=== PATIENT | female | born 1965 | race Caucasian/White ===

== ENCOUNTER 2020-09-09 12:31 | Emergency (ER) | payer MEDICAID, SELFPAY ==
[2020-09-09 12:36] VITALS: BP 156/77; PULSE 79; RESP 16; TEMP 36.7; O2SAT 99
--- NOTE | 2020-09-09 13:04 | ED.GENADUL_ITS ---
Discharge Plan Disposition Patient Disposition: HOME Condition: Stable Discharge Details Clinical Impression: Nausea Primary Care Provider: Unknown,Unknown ED Provider: Navid Kerr Home Meds and New Rx's Prescriptions: New ondansetron HCl [Zofran] 4 mg tablet 4 mg PO Q8H PRNQty: 10 RF: 0 Discharge Instructions Instructions: Acute Nausea and Vomiting (ED) Additional Instructions: Zofran as directed. [id number] Tylenol and/or Motrin as directed for discomfort. Covid test is pending, please quarantine until the test has come back negative. Watch for new or worsening symptoms and return to the ER for any concerns. I do recommend reaching out your primary care provider to discuss outpatient reevaluation. Stand Alone Forms: PENDING COVID-19 TESTING Discharge Data Discharge Date/Time-TO BE ENTERED AT DEPARTURE: 09/09/20 14:10 Medical Decision Making This is a 54-year-old female who is presenting with general malaise, 2/10 headache, mild nausea that began last , worsened after getting the [employer] Covid vaccine that subsequent Wednesday. Reports T-max of 100.0 the same day. She took Tylenol today and her headache has resolved completely. Reports mild nausea but no vomiting. That she is concerned that her son has Covid, he is currently in the ER being evaluated, and because she was simply sitting in the car she thought she was coming to the ER to get tested for Covid. She has no additional questions or concerns. Clinically she appears well, nontoxic, no distress, neurologically intact. Pulse 79, respirations 16, afebrile, O2 sat 99% on room air. Lungs are clear to auscultation. I see no indication for blood draw or chest x-ray. Will obtain Covid swab. Patient requesting Tylenol to be sure that her headache is not come back. 1 g p.o. Tylenol given. Patient remained neurologically intact. She has no additional questions or concerns and is comfortable discharge. Medical Records Medical records reviewed: Yes I reviewed the patient's medical records. HPI General Mode of arrival: ambulatory . Date/Time Provider Initiated Documentation: 09/09/20 12:40 . Limitations to Documentation: no limitations . Information obtained by: patient . HPI Narrative: This is a 54-year-old female, denies significant past medical history presents to the ER for evaluation. She states that her son was being evaluated in the ER and she was just waiting in the car so she figured she should come in to get tested for Covid. She states that on or Wednesday of last week she had general malaise, 2 out of 10 mild global headache. Subsequently on 09-07 she had the [employer] Anish Covid vaccine. She states that her symptoms worsened after taking the vaccine. She took Aleve this morning and reports that her headache has resolved completely. Mild nausea but no vomiting. She states that after she had the vaccine she had a temperature of 100.0. She denies fever now. She denies any current headache, visual change, neck pain, chest pain, shortness of breath, cough, abdominal pain, vomiting, change in bowel or bladder function, numbness, tingling, focal weakness. Does report general malaise. She is concerned that her son could have Covid so she would like to be tested. Related Data Home Medications Medication Instructions Recorded Confirmed ondansetron HCl [Zofran] 4 mg PO Q8H PRN #10 tab 09/09/20 Previous Rx's Medication Instructions Recorded ondansetron HCl [Zofran] 4 mg PO Q8H PRN #10 tab 09/09/20 Allergies Allergy/AdvReac Type Severity Reaction Status Date / Time No Known Allergies Allergy Unverified 09/09/20 12:38 General Stated Complaint: Headache MARCELLA: 4 Review of Systems Constitutional Constitutional: Reports fatigue, Reports fever(s) and Reports headache(s) Eyes Eyes: Denies change in vision ENT Ears, Nose, Mouth, and Throat: Reports headache(s) and Denies neck pain Cardiovascular Cardiovascular: Denies chest pain and Denies dyspnea Respiratory Respiratory: Denies cough and Denies dyspnea Gastrointestinal Gastrointestinal: Denies abdominal pain, Reports nausea and Denies vomiting Genitourinary Genitourinary: Denies dysuria Musculoskeletal Musculoskeletal: Denies neck pain, Denies numbness and Denies tingling Integumentary/Breasts Skin/Breast: Denies rash Neurologic Neurologic: Reports headache(s), Denies numbness, Denies tingling and Reports weakness (Generalized) Endocrine Endocrine: Reports fatigue [facility] Social History Smoking/Tobacco Use Status: Never Smoking risk assessment performed?: Yes Alcohol Intake: never Drug use: Never Do you feel safe at home: Yes Do you feel safe in your relationship?: Yes Exam Const General: cooperative, healthy appearing, comfortable and no acute distress Orientation: alert, awake and oriented x3 HENMT Head: normal to inspection, normocephalic and atraumatic Ears: external ears normal, TM's normal bilaterally and EAC's normal Face and sinus: normal facial exam Mouth: moist mucous membranes Throat: posterior oropharynx normal Eyes General: appearance normal, both eyes and all related structures Conjunctivae: conjunctivae normal Neck Neck: normal visual inspection, full ROM, no lymphadenopathy, no meningeal signs, trachea midline, supple and nontender Resp Effort & Inspection: normal respiratory effort and able to speak in complete sentences Auscultation: clear to auscultation bilaterally Cardio Rate: regular rate Rhythm: regular rhythm GI Palpation: soft and nontender Back/Spine/Pelvis Back: No back tenderness Skin General skin exam: no rashes or lesions noted Neuro General: patient alert, patient awake, patient oriented x3, moves all extremities and no focal motor deficits Cognition: normal cognition Speech: speech normal Gait: normal gait Motor: muscle tone normal throughout Sensory Exam: no sensory deficits noted Extrem General: normal to inspection, full ROM and capillary refill normal Psych Appearance: grossly normal Mental Status: mental status grossly normal Course Vital Signs Vital signs: Vital Signs Temperature 36.7 C 09/09/20 12:36 Pulse 79 09/09/20 12:36 Respiratory Rate 16 09/09/20 12:36 Blood Pressure 156/77 H 09/09/20 12:36 Pulse Oximetry 99 09/09/20 12:36 Temperature 36.7 C 09/09/20 12:36 Temperature Source Skin 09/09/20 12:36 Pulse 79 09/09/20 12:36 Respiratory Rate 16 09/09/20 12:36 Blood Pressure 156/77 H 09/09/20 12:36 Blood Pressure Position Sitting 09/09/20 12:36 Pulse Oximetry 99 09/09/20 12:36 Oxygen Delivery Method Room Air 09/09/20 12:36 Oxygen Flow Rate 0 09/09/20 12:36 Pain Level 0 09/09/20 12:36
[2020-09-09] MEDS: Ondansetron O.D.T. 4 MG TABEF PO (13:11)
[2020-09-09] MEDS: Acetaminophen 500 MG TAB 1000 MG PO (13:57)
[2020-09-09 13:59] VITALS: BP 131/71; PULSE 73; RESP 15; TEMP 36.6; O2SAT 98
[2020-09-09 14:07] VITALS: BP 131/71; PULSE 73; RESP 15; TEMP 36.6; O2SAT 98
[2020-09-10 12:35] LABS: COVID-19 RT-PCR UVMMC Result Positive (Negative)
== END 2020-09-09 14:10 | disposition home or self-care (01) ==
PROVIDERS: Emergency Provider Physician Assistant
DX: U07.1 COVID-19 (principal); R11.0 Nausea
CPT/HCPCS: 99283; U0003

== ENCOUNTER → 2023-11-30 02:06 | Outpatient (CLI) | payer MEDICAID, SELFPAY ==
--- NOTE | 2023-11-30 | DI.US_ITS ---
Exam(s) US CAROTID EXAM: US CAROTID CLINICAL HISTORY: VERTIGO,H81.4,TINNITUS,H93.19. TECHNIQUE: Ultrasound carotids performed using grayscale, color-flow, and spectral Doppler imaging. COMPARISON: No exams were available for comparison FINDINGS: CAROTID ARTERIES: There is minimal plaque evident In the common carotid arteries, carotid bulbs and internal carotid arteries in the neck. There are n o elevated systolic velocities. Mildly elevated diastolic velocities are noted in the distal interna l carotid arteries in the upper neck bilaterally questionable significance. Visually these vessels a ppear patent. VERTEBRAL ARTERIES: Antegrade flow demonstrated in both vertebral arteries. Incidental finding: There is a 1.2 cm solid hypoechoic nodule in the inferior aspect of the left thyr oid lobe. Exhibits peripheral calcification. Measurements: R Bulb: 77.6cm/s PS / 28.4cm/s ED R CCA: 80.2cm/s PS / 28.4cm/s ED R ECA: 93.2cm/s PS / 19.3cm/s ED R ICA Prox: 78.2cm/s PS / 32.5cm/s ED R ICA Mid: 97.8cm/s PS / 43.3cm/s ED R ICA Distal: 100cm/s PS /47.7cm/s ED R Vert: 53.4cm/s PS / 22.8cm/s ED R SVR: 1.2 R DVR: 1.7 L Bulb: 81.5cm/s PS / 25.8cm/s ED L CCA: 91.9cm/s PS / 34.9cm/s ED L ECA: 78.9cm/s PS / 16.7cm/s ED L ICA Prox: 72.4cm/s PS / 32.3cm/s ED L ICA Mid: 96.6cm/s PS / 46.1cm/s ED L ICA Distal: 87.6cm/s PS / 42.2cm/s ED L Vert: 51.3cm/s PS / 18.9cm/s ED L SVR: 1.1 L DVR: 1.3 IMPRESSION: No evidence for hemodynamically significant carotid stenosis. Antegrade flow demonstrated in both vertebral arteries Left thyroid nodule noted. This can be further studied with dedicated thyroid ultrasound Criteria for Carotid Stenosis: Normal: ICA PSV <125 cm/s no plaque or intimal thickening is visible. <50% stenosis: ICA PSV <125 cm/s and plaque or intimal thickening is visible. 50-69% stenosis: ICA PSV is 125-250 cm/s and plaque is visible. >70% stenosis to near occlusion: ICA PSV >250 cm/s with visible plaque and luminal narrowing. DATA REPOSITORY:
--- OUTSIDE RECORDS SUMMARY | 2023-11-30 02:10 | XMS_ITS | Continuity of Care Document ---
Author Name Unknown Organization [facility] Address [address] [place] [id number] Care Team Providers Care Services Host Name Role Phone Mikala Ellis APRN Primary Care Physician Encounter LTTL_[place] FIN NBR [id number] Date(s): 10/12/23 - 10/12/[address] [address] Encounter Diagnosis Other fatigue(Final) - Vitamin D deficiency, unspecified(Final) - Discharge Disposition: Home or Self Care Attending Physician: Mikala Ellis APRN Admitting Physician: Mikala Ellis APRN Referring Physician: Mikala Ellis APRN Results Laboratory List Name Date CBC w/o Diff (CBC, without Differential (CPT-08939)) 10/12/23 Comprehensive Metabolic Pane l (Comprehensive Metabolic Profile, Non-Fasting (CMP) (CPT-76456)) 10/12/23 Lipid Panel (Lipid Profile (CPT-08147)) 10/12/23 Thyroid Stimulating Hormone (Thyroid Sti mulating Hormone (TSH) (CPT-82142)) 10/12/23 Vitamin D 25 Hydroxy Level (Vitamin D, 2 5-Hydroxy (CPT-74837)) 10/12/23 Most recent to oldest [Reference Range]: 1 WBC [4.8-10.8 K/mcL] 5.4 K/mcL (10/12/23 3:31 PM) RBC [4.20-5.40 Million/mcL] 4.58 Million /mcL (10/12/23 3:31 PM) BUN [7-25 mg/dL] 18 mg/dL (10/12/23 3:31 PM) Cholesterol Total [<=200 mg/dL] 211 mg/d L *HI* (10/12/23 3:31 PM) LDL 132.0 mg/dL 1 *NA* (10/12/23 3: PM) Glucose Level [70-109 mg/dL] 79 mg/dL (10/12/23 3: PM) Potassium Level [3.5-5.1 mmol/L] 4.1 mmo l/L (10/12/23 3: PM) MCV [81.0-99.0 fL] 88.1 fL (10/12/23: PM) HDL [23-92 mg/dL] 65 mg/dL (10/12/23 3:31 PM) AST [13-39 IntlUnit/L] 16 IntlUnit/L (10/12/23: PM) ALT [7-52 IntlUnit/L] 16 IntlUnit/L (10/12/23: PM) MCHC [32.0-37.0 g/dL] 33.5 g/dL (10/12/23: PM) Osmolality [275-295 mOsm/kg] 280 mOsm/kg (10/12/23: PM) Sodium Level [136-145 mmol/L] 140 mmol/L (10/12/23:31 PM) Chol/HDL 3.2 2 *NA* (10/12/23 PM) Hct [37.0-47.0 %] 40.3 % (10/12/23: PM) Vitamin D 25 OH [30.0-100.0 ng/mL] 30.0 ng/mL 3 (10/12/23 PM) Triglycerides [<=150 mg/dL] 70 mg/dL (10/12/2331 PM) Calcium Level [8.6-10.3 mg/dL] 9.6 mg/dL (10/12/23:31 PM) Albumin Level [3.5-5.7 g/dL] 4.4 g/dL (10/12/23: PM) Protein Total [6.4-8.9 g/dL] 7.3 g/dL (10/12/23 3:31 PM) MCH [27.0-31.0 pg] 29.5 pg (10/12/23: PM) Bilirubin Total [0.3-1.0 mg/dL] 0.5 mg/d L (10/12/23 3:31 PM) Hgb [12.0-16.0 g/dL] 13.5 g/dL (10/12/23 3:31 PM) Alk Phos [34-104 IntlUnit/L] 80 IntlUnit /L (10/12/23 3:31 PM) MPV [7.4-10.4 fL] 9.0 fL (10/12/23 3:31 PM) Platelets [130-400 K/mcL] 240 K/mcL (10/12/23 3:31 PM) CO2 [21-31 mmol/L] 27 mmol/L (10/12/23 3:31 PM) TSH [0.45-5.33 mcIntlUnit/mL] 1.66 mcInt lUnit/mL (10/12/23 3:31 PM) Chloride Level [98-107 mmol/L] 102 mmol/ L (10/12/23 3:31 PM) RDW-CV [11.5-14.5 %] 13.4 % (10/12/23 3:31 PM) A/G Ratio [1.0-2.5 g/dL] 1.5 g/dL (10/12/23 3:31 PM) BUN/Creat Ratio [8.0-20.0] 20.0 (10/12/23 3:31 PM) Globulin [2.3-3.5 g/dL] 2.9 g/dL (10/12/23 3:31 PM) Creatinine Level [0.60-1.20 mg/dL] 0.90 mg/dL (10/12/23 3:31 PM) Anion Gap [3.0-12.0] 11.0 (10/12/23 3:31 PM) eGFR CKD-EPI [>=60 mL/min/1.73 m2] 75 mL /min/1.73 m2 (10/12/23 3:31 PM) 1Interpretive Data: Optimal: Less than 100 mg/dL Above Optimal: 100 - 129 mg/dL Borderline High: 130 - 159 mg/dL High: 160 - 189 mg/dL Very High: > or = 190 mg/dL 2Interpretive Data: RISK MALE FEMALE 1/2 average 3.4 3.3 Average 5.0 4.4 2x Average 9.6 7.1 3x Average 23.4 11.0 3Interpretive Data: VIT D STATUS: RANGE: Deficient <20 ng/mL Insufficiency 20-30 ng/mL Sufficiency 30-100 ng/mL Toxicity >100 ng/mL Patients that have undergone flourescein dye angiography without allowing enough time for clearanceof the flourescein dye may have falsely elevated Vitamin D levels. Patient Care team information Care Team Personnel Name: Mikala Ellis APRN Position: Physician Member Role: Primary Care Physician Address: Address: [place] [address]- Care Team Related Persons Name: SURYA GAMEZ
--- OUTSIDE RECORDS SUMMARY | 2023-11-30 02:10 | XMS_ITS | Patient Health Record ---
Author Name Unknown [facility] Address [address] [place] [address] Care Team Providers Care Well Blower Name Role Phone ELIS BURTON Primary Care Provider Un available Reta Perez Unavailable [phone] REASON FOR REFERRAL No Information SOCIAL HISTORY Tobacco Use: Social History Observation Description Date Details (start date - stop date) Never Smoker NA - NA Sex Assigned At : Social History Observation Description Sex Assigned At Unknown SMOKING Question Answer Notes Are you a: nonsmoker PROBLEMS Problem Type ICD Code Onset Dates Problem Status W/U Status Risk SNOMED Code Notes Problem Sural neuritis (G57.80) Active confirmed PLAN OF TREATMENT No Information Insurance Providers Payer Name Payer Address Payer Phone Subscriber Number Group Number Insured Name Patient Relationship to Insured Coverage Start Date Coverage End Date [place]ICAID [place] [employer] [place], [place] [id number] ITZEL GAMEZ Self - patient is the insured [place] [address] ITZEL GAMEZ Self - patient is the insured MEDICAL (GENERAL) HISTORY Medical History History ICD Code [place] veins Vit D deficiency Obesity Surgical History Surgery Date(Month/Year) Tonsillectomy BTL
--- OUTSIDE RECORDS SUMMARY | 2023-11-30 02:10 | XMS_ITS | Continuity of Care Document ---
Author Name Unknown Organization [facility] Address [address] [place] [address] Care Team Providers Care Front Man Name Role Phone Mikala Ellis APRN Primary Care Physician Encounter LTTL_[place] FIN NBR [id number] Date(s): 12/22/22 - 12/22/22 [facility] [address] [place], [place] [address] Encounter Diagnosis Pleurodynia(Final) - Discharge Disposition: Home or Self Care Attending Physician: Rachel Hicks APRN Admitting Physician: Rachel Hicks APRN Referring Physician: Rachel Hicks APRN Results Radiology Reports * Exam Date Time Procedure Performing Provider Status 12/22/22 4:45 PM XR Ribs w/ PA Chest Bilateral DomainUs er, Generated; Auth (Verified) Notes: (XR Ribs w/ PA Chest Bilateral) Reason For Exam: R07.81-Pleurodynia;R07.81-Pleurodynia XR Ribs w/ PA Chest Bilateral EXAM DESCRIPTION: XR Ribs w/ PA Chest Bilateral, 7 views 12/22/2022 INDICATION: R07.81-PLEURODYNIA COMPARISON: None FINDINGS: No acute rib fracture identified on either side Clear lungs with no focal infiltrate or pulmonary edema. Normal cardiomediastinal contour. No significant pleural effusion or pneumothorax. Spondylotic changes of the dorsal spine. IMPRESSION: No acute rib fracture identified on either side No active chest disease. JOB #: [id number] Final Signed by: Jose Maria Barcenas MD Signed (Electronic Signature): 12/22/2022 4:49 pm Patient Care team information Care Team Personnel Name: Mikala Ellis APRN Position: Physician Member Role: Primary Care Physician Address: Address: [address] [address]- Care Team Related Persons Name: SURYA GAMEZ
[2023-11-30] MEDS: Omnipaque 350 MG/ML 100 ML BTL IJ (13:27)
[2023-11-30] MEDS: Normal Saline - Diluent 50 ML VIAL IJ (13:29)
--- NOTE | 2023-11-30 14:14 | DI.CT_ITS ---
Exam(s) CT BRAIN NECK CTA EXAM: CT BRAIN NECK CTA CLINICAL HISTORY: VERTIGO,TINNITUS., ? VASCULAR ISSUE. TECHNIQUE: Imaging Protocol: Axial CT angiography was performed with multi-slice acquisition and mu lti-planar and/or 3D reconstructions. CONTRAST MATERIAL: Intravenous: Omnipaque 350 contrast volume:85 mL COMPARISON: No exams were available for comparison FINDINGS: CT Head W/O and W: Ventricles and Extra axial spaces: Normal in size and morphology for the patient's age. Hemorrhage: None. Cerebral parenchyma: Normal. No acute territorial infarct is seen. No mass effect is present. Midline shift: None. Brainstem/Cerebellum: Normal. Calvarium: Normal. Visualized Paranasal sinuses/Mastoids: Clear. Soft Tissues: Unremarkable. Enhancement: Unremarkable. CTA Neck W: Common Carotid: Right: No dissection, occlusion or significant stenosis. Left: No dissection, occlusion or significant stenosis. External Carotid: Right: No occlusion or significant stenosis. Left: No occlusion or significant stenosis. Internal Carotid: Right: No dissection, occlusion or significant stenosis. Left: No dissection, occlusion or significant stenosis. Vertebral Artery: Right: No dissection, occlusion or significant stenosis. Left: No dissection, occlusion or significant stenosis. Lung Apices: Normal. Bones: Within normal limits for the patient's age. Soft Tissues: Normal. Thyroid gland: Unremarkable. CTA Brain W: Internal Carotid Arteries: There is no aneurysm, occlusion or significant stenosis. Anterior Cerebral Arteries: Right: No aneurysm, occlusion or significant stenosis. Left: No aneurysm, occlusion or significant stenosis. Middle Cerebral Arteries: Right: No aneurysm, occlusion or significant stenosis. Left: No aneurysm, occlusion or significant stenosis. Posterior Cerebral Arteries: Right: No aneurysm, occlusion or significant stenosis. Left: No aneurysm, occlusion or significant stenosis. Vertebral Arteries: Right: No aneurysm, occlusion or significant stenosis. Left: No aneurysm, occlusion or significant stenosis. Basilar Artery: No aneurysm, occlusion or significant stenosis. IMPRESSION: 1. No large vessel occlusion or significant stenosis on the CT angiography of the head. 2. No acute intracranial process. 3. No occlusion or significant stenosis on the CT angiography of the neck. RADIATION DOSE DELIVERED: 2,130.64mGy.cm Total DLP DATA REPOSITORY: All CT scans at this facility are submitted to the National Radiology Data Registry (NRDR) Dose Index Registry (DIR) with the [employer] (ACR). RADIATION OPTIMIZATION: All CT scans at this facility use at least one of these dose optimization te chniques: automated exposure control; mA and/or kV adjustment per patient size (includes targeted exa ms where dose is matched to clinical indication); or iterative reconstruction.
== END ==
PROVIDERS: Visit Provider Nurse Practitioner Family
DX: H81.4 Vertigo of central origin (principal)
CPT/HCPCS: 70496; 70498; 93880; J3490

== ENCOUNTER → 2023-12-01 01:37 | Outpatient (CLI) | payer MEDICAID, SELFPAY ==
--- NOTE | 2023-12-01 | DI.US_ITS ---
Exam(s) US THYROID EXAM: US THYROID CLINICAL HISTORY: THYROID NODULE 1.2 CM SOLID HYPOECHOIC NODULE LT, ? CANCER. TECHNIQUE: Ultrasound thyroid performed using standard protocol. COMPARISON: No exams were available for comparison FINDINGS: Both thyroid lobes as well as the isthmus exhibit normal size and echotexture. There is, however, a single solid nodule which is in the inferior aspect of the left lobe. There are no nodules in the ri ght lobe nor in the isthmus. This left lobe nodule measures 1.0 x 0.7 x 0.7 cm TiRads grading for this nodule is as follows: Composition: Solid-2 points Echogenicity: Hypoechoic-2 points Shape: Wider than taller-0 points Margin: Smooth-0 points Echogenic Foci: Peripheral calcification evident-2 points Total points for this nodule: 6 ACR Ti-Rads Category: 4 This TR 4 level nodule can be followed as it measures less than 1.5 cm size. TR 4 level nodules greater than 1.5 cm size require ultrasound FNA. Maximum measurement of this nodu le is 1 cm. LYMPH NODES: There is no significant adenopathy. IMPRESSION: There is a single solid 10 x 7 x 7 mm nodule in the inferior aspect of the left thyroid lobe which is a TR 4 level nodule. Recommend repeat ultrasound in 1 year No significant adenopathy evident DATA REPOSITORY:
--- OUTSIDE RECORDS SUMMARY | 2023-12-01 01:38 | XMS_ITS | Patient Health Record ---
Author Name Unknown [facility] Address [address] [place] [address] Care Team Providers Care Special Agent Secret Service Name Role Phone ELIS BURTON Primary Care Provider Un available Reta Perez Unavailable [phone] REASON FOR REFERRAL No Information SOCIAL HISTORY [...] [place]ID [place] [employer] [employer] [place], [place] [id number] ITZEL GAMEZ Self - patient is the insured [place] [address] ITZEL GAMEZ Self - patient is the insured MEDICAL (GENERAL) HISTORY Medical History History ICD Code [place] veins Vit D deficiency Obesity Surgical History Surgery Date(Month/Year) Tonsillectomy BTL
== END ==
PROVIDERS: Visit Provider Nurse Practitioner Family
DX: E04.1 Nontoxic single thyroid nodule (principal)
CPT/HCPCS: 76536

== ENCOUNTER → 2024-01-03 01:47 | Outpatient (CLI) | payer MEDICAID, SELFPAY ==
--- NOTE | 2024-01-03 | ETT_ITS ---
APPROVED REPORT Exam: Exercise Treadmill Patient Location: Out-Patient Room/Bed: Stress Nurse: Lorraine Ware RN and Tk Oconnell RN Ordering Provider:SELINA MCGILL, Contact Number: [phone] BMI: 33.44 Baseline Rhythm: Sinus Bradycardia. Indications: Palpitations; Dyspnea on Exertion. Medical History Medical History: Chronic Low Back Pain; Chronic Fatigue; Hyperlipidemia; Obesity; Obstructive Sleep A pnea. Cardiac Medications: Lorazepam; Meclizine; Proair. Allergies: None. Cardiac Risk Factors: Hyperlipidemia; Obesity. Previous Cardiac Procedures: None. Pretest Chest Pain Characteristics: Pt. complaining of left arm achiness that she states is often a s harp left arm pain. Pt. states that this has been almost constant for a few weeks now and that it occ asionally radiates in to her left back and left neck. Pt. states that it radiated to her left back re cently and was painful enough to cause shortness of breath. Pt. states that she experienced some naus ea last night. Pt. states that the pain is reproducible. Exercise History: Indeterminate. Physical Disabilities: None. Lung Sounds: Clear bilaterally throughout, anterior and posterior. Heart Sounds: S1 and S2 auscultated. Stress Test Details Test: Exercise stress testing was performed using a Sergio protocol. Rest Stress HR Resting HR Supine: 56 bpm Max Heart Rate (APMHR): 163 bpm Resting HR Standin bpm Target HR (85% APMHR): 139 bpm Max HR Achieved: 141 bpm % of APMHR: 87 Recovery HR: 71 bpm HR response to stress: Normal HR response to stress. BP Resting BP Supine: 154/90 mmHg Resting BP Standin/80 mmHg Max BP: 190/90 mmHg Recovery BP: 132/82 mmHg BP response to stress: Normal blood pressure response to stress. ECG Resting ECG: Sinus Bradycardia. Ectopy: None. Stress ECG: Sinus Tachycardia. ST Change: No significant ST segment changes noted. Arrhythmia: None. Recovery ECG: Sinus Rhythm. Recovery Arrhythmia: Rare PVC. Clinical Reason for Termination: Fatigue; Dizziness. Stress Symptoms: General Fatigue; Dizziness. Exercise duration: 06 min24 sec Highest Stage Reached: Stage 3: 3.4 mph at 14% grade. Exercise capacity: 7.68 METs Angina Score: None Ponce Treadmill Score: 5.2 Rate Pressure Product: 37650 Stress ECG Conclusion 1. Resting electrocardiogram showed diffuse minor ST-T abnormalities 2. Patient exercised on the Sergio protocol with completed workload of 7.68 METS 3. Normal heart rate and blood pressure response to exercise. Patient achieved 87% of predicted hear t rate for age 4. There was no electrocardiographic evidence of myocardial ischemia 5. There were rare PVCs Ponce Treadmill Score is 5.2 which is Low risk. Stress Test Summary STAGE Time (mins) Speed (mph) Grade (%) HR BP SpO2 SYMPTOMS METS Supine 56 154/90 95 Standing 63 126/80 97 1 3 1.7 10 105 148/72 94 4.5 2 6 2.5 12 130 164/74 96 Pt. complaining of mild fatigue. 7 3 9 3.4 14 140 Pt. complaining of moderate fatigue and some lightheadedness. 10 1 min recovery 100 190/90 98 Pt. complaining of mild to moderate fatigue, but states that t he lightheadedness has resolved. 3 min recovery 69 170/84 96 Pt. states that all symptoms have resolved and are back to base line. 6 min recovery 71 132/82 98 Pt. complaining of left arm achiness prior to starting her stress test that she states is often a sha rp left arm pain. Pt. states that this has been almost constant for a few weeks now and that it occas ionally radiates in to her left back and left neck. Pt. states that it radiated to her left back rece ntly and was painful enough to cause shortness of breath. Pt. states that she experienced some nausea last night. Pt. states that the pain is reproducible. Pt. denied any change in her left arm achiness /pain during the stress test. Pt. was conversing pleasantly with nursing staff upon leaving the Stres s Lab. Pt. left ambulatory in no apparent distress.
--- OUTSIDE RECORDS SUMMARY | 2024-01-03 01:49 | XMS_ITS | Clinical Summary ---
Author Organization Formerly [facility], [facility] [place] [address] Care Team Providers Care Patient Financial Services Coordinator Name Role Phone RhondaBryanMikala ERLINDA Primary Care Provider [phone] [phone] Allergies No known active allergies Medications No known medications Active Problems Problem Noted Date Diagnosed Date Plantar fasciitis, left 07/10/2021 Left foot pain 05/14/2021 HEATHER (obstructive sleep apnea) 10/02/2019 Encounters Date Type Department Care Team Description 12/28/2023 Interpretation Only [address] [address] Dinesh Sorensen DO 12/07/2023 Transcribe Orders eD Incoming Referrals [phone] Eryn Ruiz APRN Tinnitus, bilateral (Primary Dx); Sleep apnea, unspecified type; Shortness of breath; Benign paroxysmal vertigo, unspecified laterality from Last 3 Months Social History Tobacco Use Types Packs/Day Years Used Date Smoking Tobacco: Never Smokeless Tobacco: Never Alcohol Use Standard Drinks/Week Comments Not Currently 0 (1 standard drink = 0.6 oz pur e alcohol) Sex and Gender Information Value Date Recorded Sex Assigned at Not on file Gender Identity Not on file Sexual Orientation Not on file Last Filed Vital Signs Vital Sign Reading Time Taken Comments Blood Pressure 136/69 07/08/2021 10:08 AM EST Pulse 63 07/08/2021 10:08 AM EST Temperature - - Respiratory Rate - - Oxygen Saturation - - Inhaled Oxygen Concentration - - Weight 94.3 kg (208 lb) 07/08/2021 10:08 AM EST Height 165.1 cm (5' 5) 07/08/2021 10:08 AM EST Body Mass Index 34.61 07/08/2021 10:08 AM EST Plan of Treatment Health Maintenance Due Date Last Done Comments CT Colonography 1966 Colonoscopy 1966 Colorectal Cancer Screening 1966 FIT DNA 1966 FIT 1966 Sigmoidoscopy (10 year) with FIT yearly 1966 Sigmoidoscopy 1966 HIV screen 1984 Hepatitis C Screening 1984 Lipid Screening 1984 Hepatitis B vaccine (0-59 yrs) (1) 1985 Tdap adult 1985 Tetanus vaccine 1985 HPV test 1996 PAP Smear 1996 Breast Cancer Share Decision Needed 2006 Breast Cancer screening 2006 Diabetes Screening (HgbA1C or Glucose) 2006 Zoster vaccine (1 of 2) 2016 Advance Directive 2021 Covid-19 Vaccine (1 - 2022-24 season) 2023 Influenza (Flu) vaccine (1 o f 1 - Influenza standard series) 01/30/2024 Procedures Procedure Name Priority Date/Time Associated Diagnosis Comments US LOWER EXTREMITY DUPLEX BILATERAL Routine 12/28/2023 1:21 PM EDT from Last 3 Months Results * US Lower Extremity Duplex Bilateral (12/28/2023 1:21 PM EDT) PT CLASS O RAD ADMITDTTM [id number] RAD PT [facility] MD INFO [id number]^Shola son^Dinesh^S RAD EXAM DESC ULOEXB^US Lower Ext Venous Duplex Bilateral^RIS [facility] WORKSTATION ID RADDRIMAGE [facility] Anatomical Region Laterality Modality Other 12/28/2023 12:0 4 PM EDT Impressions 12/29/2023 9:47 AM EDT Right leg: Reflux in the greater saphenous vein at the saphenofemoral junction and proximal calf. Left leg: Reflux in the greater saphenous vein at the saphenofemoral junction, in the proximal to distal thigh and proximal to distal calf. No deep venous reflux bilaterally. Thank you for letting us participate in the care of this patient. ??If you are a health care provider and have any questions regarding this report, please contact the number below. ??For patients who have questions please contact the health wound care physician that requested your imaging first. ? Narrative 12/29/2023 9:47 AM EDT EXAMINATION: US Lower Ext Venous Duplex Bilateral CLINICAL HISTORY: venous insufficiency/look at perfurators and the deep system TECHNIQUE: Lower extremity venous color and spectral Doppler ultrasound was performed and provocative maneuvers of Valsalva and augmentation were utilized by the rotary cutter feeder. COMPARISON: None FINDINGS: ?? RIGHT LEG: ?? DEEP VEINS: Patent. No thrombus. No significant reflux (<1.0 seconds). ?? GREATER SAPHENOUS VEIN: There is reflux in the greater saphenous vein at the saphenofemoral ? junction and the proximal calf. ?Perforators noted anterior greater saphenous vein in thigh and mid calf. ?? SMALL SAPHENOUS VEIN: Patent. No thrombus. ??No significant reflux (<0.5 seconds). ?? LEFT LEG: ?? DEEP VEINS: Patent. ??No thrombus. ??No significant reflux (<1.0 seconds). ?? GREATER SAPHENOUS VEIN: There is reflux in the greater saphenous vein in the proximal to distal thigh and ? proximal to distal calf. ?No perforators visualized. ?? SMALL SAPHENOUS VEIN: Patent. ??No thrombus. No significant reflux (<0.5 seconds). Procedure Note Seth Mata MD - 12/29/2023 EXAMINATION: US Lower Ext Venous Duplex Bilateral CLINICAL HISTORY: venous insufficiency/look at perfurators and the deepsystem TECHNIQUE: Lower extremity venous color and spectral Doppler ultrasound was performedand provocative maneuvers of Valsalva and augmentation were utilized by the rotary cutter feeder. COMPARISON: None FINDINGS: RIGHT LEG: DEEP VEINS: Patent. No thrombus. No significant reflux (<1.0seconds). GREATER SAPHENOUS VEIN: There is reflux in the greater saphenous veinat the saphenofemoral junction and the proximal calf. Perforators noted anterior greater saphenous vein in thigh and mid calf. SMALL SAPHENOUS VEIN: Patent. No thrombus. No significant reflux(<0.5 seconds). LEFT LEG: DEEP VEINS: Patent. No thrombus. No significant reflux (<1.0seconds). GREATER SAPHENOUS VEIN: There is reflux in the greater saphenous veinin the proximal to distal thigh and proximal to distal calf. No perforators visualized. SMALL SAPHENOUS VEIN: Patent. No thrombus. No significant reflux(<0.5 seconds). IMPRESSION Right leg: Reflux in the greater saphenous vein at the saphenofemoraljunction and proximal calf. Left leg: Reflux in the greater saphenous vein at the saphenofemoraljunction, in the proximal to distal thigh and proximal to distal calf. No deep venous reflux bilaterally. Thank you for letting us participate in the care of this patient. If youare a health care provider and have any questions regarding this report,please contact the number below. For patients who have questions please contactthe health wound care physician that requested your imaging first. Dinesh Sorensen DO PACS IMAGES from Last 3 Months Care Teams Patient Financial Services Coordinator Relationship Specialty Start Date End Date Mikala Ellis APRN PCP - General Family Medicine 12/11/20
--- OUTSIDE RECORDS SUMMARY | 2024-01-03 01:49 | XMS_ITS | Patient Health Record ---
Author Organization [facility] Address [address] [place] [address] Care Team Providers Care Fbi Sharpshooter Name Role Phone ELIS BURTON Primary Care Provider Un available Reta Perez Unavailable [phone] REASON FOR REFERRAL No Information SOCIAL HISTORY [...] Notes Problem Sural neuritis (G57.80) Active confirmed Sural neuropathy (disorder) ([id number]) PLAN OF TREATMENT No Information Insurance Providers Payer Name Payer Address Payer Phone Subscriber Number Group Number Insured Name Patient Relationship to Insured Coverage Start Date Coverage End Date [place]ID [place] [employer] [place], [place] [id number] ITZEL GAMEZ Self - patient is the insured SELF [place]Y [place] [address] ITZEL GAMEZ Self - patient is the insured MEDICAL (GENERAL) HISTORY Medical History History ICD Code [place] veins Vit D deficiency Obesity Surgical History Surgery Date(Month/Year) Tonsillectomy BTL
--- OUTSIDE RECORDS SUMMARY | 2024-01-03 01:49 | XMS_ITS | Clinical Summary ---
Author Organization [facility] Address [address] [place] [address] Care Team Providers Care Nuclear Worker Technician Name Role Phone Unavailable Primary Care Provider Unavailabl e Social History Tobacco Use Types Packs/Day Years Used Date Smoking Tobacco: Never Assessed Interpersonal Safety Answer Date Record ed Physically Hurt Never 09/10/2020 Verbally Threaten Not on file 09/10/2020 Sex and Gender Information Value Date Recorded Sex Assigned at Not on file Gender Identity Not on file Sexual Orientation Not on file Plan of Treatment Health Maintenance Due Date Last Done Comments Hepatitis C Screen 1966 Hepatitis B Vaccine (1 of 3 - 19+ 3-dose series) 09/24 COVID-19 Vaccine (2022- season) 2023
--- OUTSIDE RECORDS SUMMARY | 2024-01-03 01:49 | XMS_ITS | Encounter Summary ---
Author Organization [facility] Address [facility] [place] [address] Care Team Providers Care Assistant Infant Toddler Teacher Name Role Phone Mikala Ellis APRN Primary Care Provider [phone] Reason for Visit * Reason Comments Follow-up L Plantar Fascitis I nj Encounter Details Date Type Department Care Team (Late st Contact Info) Description 07/08/2021 10:00 AM EST Office [place] [address] Ezekiel Durham MD [facility] [place] [address] Plantar fasciitis, left Social History Tobacco Use Types Packs/Day Years Used Date Smoking Tobacco: Never Smokeless Tobacco: Never Alcohol Use Standard Drinks/Week Comments Not Currently 0 (1 standard drink = 0.6 oz pur e alcohol) Sex and Gender Information Value Date Recorded Sex Assigned at Not on file Gender Identity Not on file Sexual Orientation Not on file documented as of this encounter Last Filed Vital Signs Vital Sign Reading [...] Mass Index 34.61 07/08/2021 10:08 AM EST documented in this encounter Patient Instructions * Attachments The following attachments cannot be sent through Care Everywhere. * Plantar Fasciitis (Australian) * Plantar Fasciitis: Exercises (Australian) documented in this encounter Progress Notes * Leslie Ortiz, BANDER AND CELLOPHANER MACHINE - 07/08/2021 10:00 AM EST PATIENT NAME: Delmy Hannon AGE: 55 y.o. MR#: [id number] DATE OF VISIT: 07/08/2021 CHIEF COMPLAINT: LEFT foot pain HISTORY OF PRESENT ILLNESS: Ms. Hannon is a 55 y.o. female who comes returns to clinic today for evaluation of the LEFT foot pain. She states that her foot pain has continued. She did not get gel insoles or more supportive shoes. She got herself some new crocs and she thinks that these are the mostcomfortable for her. She has not tried any home exercises. She describes the pain as shooting through the plantar surface of the heel and along the lateral side of the foot rounding the lateral malleolus. She then reports pain at the base of the 5th metatarsal and through the distal tuft of the 5thmetatarsal. I did explain that we have no evidence of why her 5th metatarsal hurts. Past medical history: Patient Active Problem List Diagnosis Date Noted ??? Left foot pain 05/14/2021 ??? HEATHER (obstructive sleep apnea) 10/02/2019 Medications: No current outpatient medications on file. Allergies: No Known Allergies Social history: Social History Tobacco Use ??? Smoking status: Never Smoker ??? Smokeless tobacco: Never Used Substance Use Topics ??? Alcohol use: Not Currently Review of systems: No chest pain or shortness of breath No fevers, night sweats or chills Vital signs: Patient Vitals for the past 24 hrs: Pulse BP 07/08/21 1008 63 136/69 Physical exam: Ms. Hannon is a 55 y.o. female who is alert and oriented. She is in no acute discomfort and is resting comfortably in the exam room. No use of accessory muscles or retraction. Normal respiratory rate. Exam LEFT Ankle: Skin: normal Strength: 5/5 PlantarFlexion: 45 (normal 0-45) Dorsiflexion: 20 (normal 0-20) Pronation/ Eversion (in): 25 (normal 0-25) Supination / Inversion (out) 35 (normal 35) anterior drawer: negative DP pulse +2/Palpable PT pulse +2/palpable Pain with squeeze calcaneus Pain along the inferior aspect of lateral malleolus Imaging studies: reviewed xrays from today that show no dislocation or evidence of fracture. Assessment and plan:: 55 y.o. year-old female who has clinical evidence on MRI and on exam today of plantar fascitis. We had a lengthy discussion about appropriate footwear and use of gel insole. She was advised that she needs to continue with exercises after the injection today. Patient seen with Dr Durham. Injection provided by him. See his associated note. She has complained on ongoing back pain. Advised her that she should see her PCP for workup of ongoing back pain with bilateral leg discomfort. Handout for plantar fascitis exercises provided. Script for night splints provided. This plan was discussed with the patient and they are in agreement. All of the patient's questions were answered. The patient understand to contact us if they have any other questions or concerns. FU: As needed Leslie Ortiz APRN The above dictation was made with voice recogonition software * Ezekiel Durham MD - 07/08/2021 10:00 AM EST I saw the patient with Yany Ortiz and agree with her assessment and plan. 55-year-old female withpain in numerous areas of her foot and an MRI that confirms plantar fasciitis. Unfortunately, I cannot explain the pain she has elsewhere in her foot, but I do think her heel pain is likely coming from her plantar fasciitis. We discussed the full host of nonoperative measures, which are usually successful in treating this condition. We discussed the possibility of a plantar fascial injection, andafter confirming the correct site and her lack of applicable allergies, 20 mg of Kenalog and 2 cc of 1% lidocaine were injected from a medial approach into the insertion of the plantar fascia at the calcaneus. She tolerated this well. documented in this encounter Plan of Treatment Not on file documented as of this encounter Visit Diagnoses Diagnosis Plantar fasciitis, left Plantar fascial fibromatosis documented in this encounter Care Teams Assistant Infant Toddler Teacher Relationship Specialty Start Date End Date Mikala Ellis ERLINDA PCP - General Family Medicine 12/11/20 documented as of this encounter
--- OUTSIDE RECORDS SUMMARY | 2024-01-03 01:49 | XMS_ITS | Encounter Summary ---
[place] [address] Care Team Providers Care Manager Copy Name Role Phone Mikala Ellis APRN Primary Care Provider [phone] Encounter Details Date Type Department Care Team (Late st Contact Info) Description 12/28/2023 Interpretation Only [facility] [address] [place] [address] Dinesh Sorensen, DO [address] [place] [address] Social History Tobacco Use Types Packs/Day Years Used Date Smoking Tobacco: Never Smokeless Tobacco: Never Alcohol Use Standard Drinks/Week Comments Not Currently 0 (1 standard drink = 0.6 oz pur e alcohol) Sex and Gender Information Value Date Recorded Sex Assigned at Not on file Gender Identity Not on file Sexual Orientation Not on file documented as of this encounter Plan of Treatment Not on file documented as of this encounter Procedures Procedure Name Priority Date/Time Associated Diagnosis Comments US LOWER EXTREMITY DUPLEX BILATERAL Routine 12/28/2023 1:21 PM EDT documented in this encounter Results * US Lower Extremity Duplex Bilateral (12/28/2023 1:21 PM EDT) PT CLASS O RAD ADMITDTTM [id number] RAD PT RAD MD INFO [id number]^Shola son^Dinesh^S RAD EXAM DESC ULOEXB^US Lower Ext Venous Duplex Bilateral^RIS RAD WORKSTATION ID [id number] RAD Anatomical Region Laterality Modality Other 12/28/2023 12:0 [...] who have questions please contact the health manager primary care that requested your imaging first. ? Narrative 12/29/2023 9:47 AM EDT EXAMINATION: US Lower Ext Venous Duplex Bilateral CLINICAL HISTORY: venous insufficiency/look at perfurators and the deep system TECHNIQUE: Lower extremity venous color and spectral Doppler ultrasound was performed and provocative maneuvers of Valsalva and augmentation were utilized by the microfilm machine operator. COMPARISON: None FINDINGS: ?? RIGHT LEG: ?? [...] Valsalva and augmentation were utilized by the microfilm machine operator. COMPARISON: None FINDINGS: RIGHT LEG: DEEP VEINS: [...] patients who have questions please contactthe health manager primary care that requested your imaging first. Dinesh Sorensen DO PACS IMAGES documented in this encounter Visit Diagnoses Not on filedocumented in this encounter Care Teams Manager Copy Relationship Specialty Start Date End Date Mikala Ellis APRN PCP - General Family Medicine 12/11/20 documented as of this encounter
--- OUTSIDE RECORDS SUMMARY | 2024-01-03 01:49 | XMS_ITS | Encounter Summary ---
Author Organization Formerly [facility] Address [facility] [place] [address] Care Team Providers Care Pin Maker Name Role Phone Mikala Ellis APRN Primary Care Provider [phone] [phone] Encounter Details Date Type Department Care Team (Late st Contact Info) Description 06/03/2021 Notes [place] [address] Leslie Ortiz APRN [facility] [address] [place] [address] Social History Tobacco Use Types Packs/Day Years Used Date Smoking Tobacco: Never Smokeless Tobacco: Never Alcohol Use Standard Drinks/Week Comments Not Currently 0 (1 standard drink = 0.6 oz pur e alcohol) Sex and Gender Information Value Date Recorded Sex Assigned at Not on file Gender Identity Not on file Sexual Orientation Not on file documented as of this encounter Progress Notes * Leslie Ortiz APRN - 06/03/2021 8:20 AM EST Attempted to call patient to discuss MRI and treatment plan. Per discussion with Dr Durham patient hasplantar fascitis and can try some gel inserts, PT and consider steroid injection. Left VM to call [place] to discuss. documented in this encounter Plan of Treatment Not on file documented as of this encounter Visit Diagnoses Not on filedocumented in this encounter Care Teams Pin Maker Relationship Specialty Start Date End Date Mikala Ellis APRN PCP - General Family Medicine 12/11/20 documented as of this encounter
--- OUTSIDE RECORDS SUMMARY | 2024-01-03 01:49 | XMS_ITS | Encounter Summary ---
Author Organization [facility] [place] [address] Care Team Providers Care Sanitary Landfill Operator Name Role Phone Mikala Ellis ERLINDA Primary Care Provider [phone] Reason for Visit * Reason Onset Date Comments Results 06/03/2021 Encounter Details Date Type Department Care Team (Late st Contact Info) Description 06/03/2021 Telephone [place] [id number] Leslie Ortiz APRN [facility] [address] [place] [address] Results Social History Tobacco Use Types Packs/Day Years Used Date Smoking Tobacco: Never Smokeless Tobacco: Never Alcohol Use Standard Drinks/Week Comments Not Currently 0 (1 standard drink = 0.6 oz pur e alcohol) Sex and Gender Information Value Date Recorded Sex Assigned at Not on file Gender Identity Not on file Sexual Orientation Not on file documented as of this encounter Miscellaneous Notes * Telephone Encounter - Leslie Ortiz APRN - 06/04/2021 12:46 PM EST Spoke with patient via phone and updated her on the results of her MRI. Advised the patient she hassignificant plantar fasciitis we could try some conservative measures like gel cushion inserts, supportive footwear, home exercise program and in some circumstances PT and corticosteroid injection. We discussed the benefits of anti-inflammatories either topical Voltaren gel or oral Aleve/ibuprofen.All patient's questions were answered. I did advise the patient that these types of conditions can be persistent and can take a bit of time to resolve. Because she is going on a trip soon and will need to do a lot of walking she opted to proceed with corticosteroid injection. I have sent a message to scheduling team to try to schedule her for the steroid injection seen with Dr. Durham. I did advise the patient as she asked about the numbness ongoing in her toe that there was no indication from theMRI of why she continues to have this altered sensation at the fifth metatarsal. * Telephone Encounter - Anny Vázquez - 06/03/2021 4:20 PM EST Patient calling back to discuss MRI results. Please call [phone] documented in this encounter Plan of Treatment Not on file documented as of this encounter Visit Diagnoses Not on filedocumented in this encounter Care Teams Sanitary Landfill Operator Relationship Specialty Start Date End Date Mikala Ellis APRN PCP - General Family Medicine 12/11/20 documented as of this encounter
--- OUTSIDE RECORDS SUMMARY | 2024-01-03 01:49 | XMS_ITS | Encounter Summary ---
[place] [address] Care Team Providers Care Hand Rigger Name Role Phone Mikala Ellis APRN Primary Care Provider [phone] Reason for Referral * Consultation (Routine) - Closed Specialty Diagnoses / Procedures Referred By Jacob cox Referred To Contact Neurology Diagnoses Cramp and spasm Radiculopathy, cervical region Pain in left arm Radiculopathy, lumbosacral region generalized and freq muscle cramps back, legs, L arm radicular pain L arm, legs, burning pain front of thighs, sciatica Mikala Elils APRN [address] [place] [address] [facility] [address] [place] [id number] Referral ID Status Reason Start Date Expiration Date V isits Requested Visits Authorized [id number] Closed Consult, Test & Treat 08/01/2021 08/01/2022 1 1 Encounter Details Date Type Department Care Team (Latest Contact Info) Description 08/01/2021 Transcribe [place] [address] Mikala Ellis APRN [address] [facility] [place] [address] Intractable headache, unspecified chronicity pattern, unspecified headache type Social History Tobacco Use Types Packs/Day Years Used Date Smoking Tobacco: Never Smokeless Tobacco: Never Alcohol Use Standard Drinks/Week Comments Not Currently 0 (1 standard drink = 0.6 oz pur e alcohol) Sex and Gender Information Value Date Recorded Sex Assigned at Not on file Gender Identity Not on file Sexual Orientation Not on file documented as of this encounter Plan of Treatment Scheduled Referrals Name Type Priority Associated Diagnoses Orde r Schedule Referral to Neurology Outpatient Referral Routine Intractable headache, unspecified chronicity pattern, unspecified headache type Ordered: 08/01/2021 documented as of this encounter Visit Diagnoses Diagnosis Intractable headache, unspecified chronicity pattern, unspecified headache type documented in this encounter Care Teams Hand Rigger Relationship Specialty Start Date End Date Mikala Ellis APRN PCP - General Family Medicine 12/11/20 documented as of this encounter
--- OUTSIDE RECORDS SUMMARY | 2024-01-03 01:49 | XMS_ITS | Referral Summary ---
Author Organization [facility] Address [address] [place] [address] Care Team Providers Care Itinerant Teacher Assistant Name Role Phone Unavailable Primary Care Provider [...] Orientation Not on file Plan of Treatment Not on file
--- OUTSIDE RECORDS SUMMARY | 2024-01-03 01:49 | XMS_ITS | Encounter Summary ---
Author Organization [facility], [facility] Address [facility] [place] [address] Care Team Providers Care Pin Cleaner Name Role Phone Mikala Ellis APRN Primary Care Provider [phone] Reason for Visit * Reason Onset Date Comments Other 05/14/2021 Encounter Details Date Type Department Care Team (Late st Contact Info) Description 05/14/2021 Telephone [place] [phone] Ezekiel Durham MD [facility] [place] [address] Other Social History Tobacco Use Types Packs/Day Years [...] encounter Miscellaneous Notes * Telephone Encounter - Clary Menendez - 05/14/2021 2:09 PM EST Sent for batch scheduling. * Telephone Encounter - Elzbieta Bernard - 05/14/2021 12:23 PM EST LM #1 to complete MRI safety questions. Once complete, send for batch scheduling. Please confirm with pt if a follow up appt is needed or not. documented in this encounter Plan of Treatment Not on file documented as of this encounter Visit Diagnoses Not on filedocumented in this encounter Care Teams Pin Cleaner Relationship Specialty Start Date End Date Mikala Ellis APRN PCP - General Family Medicine 12/11/20 documented as of this encounter
--- OUTSIDE RECORDS SUMMARY | 2024-01-03 01:49 | XMS_ITS | Encounter Summary ---
Author Organization [facility] Address [address] [place] [address] Care Team Providers Care Linoleum Floor Layer Name Role Phone Unavailable Primary Care Provider Unavailabl e Encounter Details Date Type Department Care Team (Late st Contact Info) Description 09/09/2020 Lab Requisition [facility] Pathology & Laboratory Medicine - [address] [address] Outr Resulting Lab, Provider Social History Tobacco Use Types Packs/Day Years [...] Procedure Name Priority Date/Time Associated Diagnosis Comments ZZCOVID-19 TEST [facility] PCR Today 09/09/2020 13:10 EDT COVID-19 TESTING Routine 09/09/2020 13:1 0 EDT documented in this encounter Results * COVID-19 TEST [facility] PCR (09/09/2020 13:10 EDT) Swab ENTIRE NASOPHARYNX / Unknown 09/09/2020 13:10 EDT 09/09/2020 22:13 EDT Provider Outr Resulting Lab MICROBIOLOGY - GENERAL ORDERABLES [facility] [address] [place] [address] * (ABNORMAL) COVID-19 TESTING (09/09/2020 13:10 EDT) COVID-19 rt-PCR Result Positive(AA ) Negative 09/10/2020 11:57 EDT [facility] Comment: This test has not been FDA cleared or approved. This test has been authorized by FDA under an EUA for use by authorized laboratories. This test has been authorized only for detection of nucleic acid from 2019-nCoV, not for any other viruses or pathogens. This test is only authorized for the duration of the declaration that circumstances exist justifying the authorization of emergency use of in vitro diagnostic tests for detection and/or diagnosis of 2019-nCoV under section 564(b)(1) of Act, 21 U.S.C ?? 360bbb-3(b) (1), unless the authorization is terminated or revoked sooner. Performed on the [employer] Fusion instrument Performing Lab [place] [facility] 09/10/2020 11:57 EDT [facility] Swab 09/09/2020 13:1 0 EDT 09/09/2020 22:13 EDT Provider Outr Resulting Lab MICROBIOLOGY - GENERAL ORDERABLES [facility] [address] [place] [address] documented in this encounter Visit Diagnoses Not on filedocumented in this encounter Additional Health Concerns Infection Onset Date Last Indicated Resolved Time COVID-19 09/09/2020 09/09/2020 10/09/2020 22:1 5 EDT documented as of this encounter
--- OUTSIDE RECORDS SUMMARY | 2024-01-03 01:49 | XMS_ITS | Encounter Summary ---
[place] [address] Care Team Providers Care Information Technology Associate Name Role Phone Mikala Ellis APRN Primary Care Provider [phone] Reason for Referral * Diagnostic Test (Routine) - Closed Specialty Diagnoses / Procedures Referred By Contac t Referred To Contact Radiology Diagnoses Left foot pain Procedures MRI Ankle wo Contrast Left MRI Foot wwo Contrast Left Leslie Ortiz APRN [facility] [place] [address] [place] [address] Referral ID Status Reason Start Date Expiration Date V isits Requested Visits Authorized [id number] Closed Specialty Service Requested 05/13/2021 11/11/2022 1 1 Reason for Visit * Diagnostic Test (Routine) - Closed Specialty Diagnoses / Procedures Referred By Contac t Referred To Contact Radiology Diagnoses Left foot pain Procedures MRI Ankle wo Contrast Left MRI Foot wwo Contrast Left Leslie Ortiz APRN [facility] [place] [address] [place] [address] Referral ID Status Reason Start Date Expiration Date V isits Requested Visits Authorized [id number] Closed Specialty Service Requested 05/13/2021 11/11/2022 1 1 Encounter Details Date Type Department Care Team (Latest Contact Info) Description 05/15/2021 7:36 AM EST - 05/15/2021 11:59 PM EST Hospital [place] [address] Leslie Ortiz APRN [facility] [place] [address] Left foot pain Discharge Disposition: Home Social History Tobacco Use Types Packs/Day Years [...] Procedure Name Priority Date/Time Associated Diagnosis Comments MRI ANKLE LEFT WO CONTRAST Routine 05/15/2021 8:42 AM EST Left foot pain documented in this encounter Results * MRI Ankle wo Contrast Left (05/15/2021 8:42 AM EST) Anatomical Region Laterality Modality Ankle Left Magnetic Resonan ce Impressions 05/15/2021 3:11 PM EST 1. ??Plantar fasciitis of both central cord and lateral cord at insertions. Findings likely contribute to pain. 2. ??The central cord fasciopathy is accompanied by reactive marrow signal alteration at calcaneal tuberosity and surrounding soft tissue edema. 3. ??The lateral cord fasciopathy is represented by a heterogeneous fascial insertion surrounded by soft tissue and muscle edema. 4. ??Thick anterior talofibular ligament represents subacute or old ankle sprain. Thank you for letting us participate in the care of this patient. ??If you are a health care provider and have any questions regarding this report, please contact the number below. ??For patients who have questions please contact the health lead caregiver that requested your imaging first. ? Electronically signed by: Charlene Reilly MD, [facility] ([phone]), at 05/15/2021 3:11 PM Narrative 05/15/2021 3:11 PM EST EXAMINATION: MRI ANKLE WO CONTRAST LEFT CLINICAL HISTORY: left calcaneus and lateral foot pain TECHNIQUE: Noncontrast MRI of the left ankle was performed using routine protocol COMPARISON: Radiographs, LEFT ankle May 13, 2021. FINDINGS: Bone: No acute fracture line seen. Calcaneus-small focus of bright STIR signal, reactive marrow signal alteration in the plantar aspect of the posterior calcaneal tuberosity, adjacent to plantar fascia insertion. The small plantar enthesophyte also has bright STIR signal, series 5 image 19. TENDONS: Extensor: Normal Flexor: Normal Achilles: Normal Peroneal: No tendon interruption. Intermediate signal in peroneus brevis distal to the lateral malleolus, series 9 image 17 suggests tendinopathy. No tear detected. Plantar fascia: * ??Central cord-Heterogeneous bright STIR signal and slightly thick, 6 mm, central cord at calcaneal insertion. There is surrounding soft tissue edema and reactive marrow signal alteration described above. * ??Lateral no interruption. At metatarsal insertion, the lateral cortex is heterogeneous surrounded by soft tissue edema and abductor digiti minimi muscle edema, series 8 image 17. Findings suggest lateral cord fasciopathy. This finding may also contribute to lateral pain. LIGAMENTS: Lateral complex: Thick anterior talofibular ligament series 7 image 15, with minimal amount of naomie-ligament edema represents subacute to old ligament injury. Syndesmosis: No tear. Deltoid: The deep deltoid ligament, posterior tibiofibular ligament series 8 image 4 is globular with loss of normal striations. Finding represents ligament sprain of indeterminate age. No interruption seen. The superficial deltoid ligaments are not interrupted. Spring: No interruption Joints and cartilage: Tibiotalar joint-trace effusion. No full-thickness cartilage defect or osteochondral injury. Subtalar joint-normal. Chopart joint-normal. Sinus tarsi: The normal fat signal is preserved. Muscle: Normal muscle bulk. Neurovascular: Normal appearance of tarsal tunnel, median and lateral plantar nerves. Procedure Note Charlene Reilly MD - 05/15/2021 EXAMINATION: MRI ANKLE WO CONTRAST LEFT CLINICAL HISTORY: left calcaneus and lateral foot pain TECHNIQUE: Noncontrast MRI of the left ankle was performed using routine protocol COMPARISON: Radiographs, LEFT ankle May 13, 2021. FINDINGS: Bone: No acute fracture line seen. Calcaneus-small focus of bright STIR signal, reactive marrow signalalteration in the plantar aspect of the posterior calcaneal tuberosity, adjacent toplantar fascia insertion. The small plantar enthesophyte also has bright STIRsignal, series 5 image 19. TENDONS: Extensor: Normal Flexor: Normal Achilles: Normal Peroneal: No tendon interruption. Intermediate signal in peroneus brevisdistal to the lateral malleolus, series 9 image 17 suggests tendinopathy. Notear detected. Plantar fascia: * Central cord-Heterogeneous bright STIR signal and slightly thick, 6mm, central cord at calcaneal insertion. There is surrounding soft tissueedema and reactive marrow signal alteration described above. * Lateral no interruption. At metatarsal insertion, the lateral cortexis heterogeneous surrounded by soft tissue edema and abductor digiti minimimuscle edema, series 8 image 17. Findings suggest lateral cord fasciopathy.This finding may also contribute to lateral pain. LIGAMENTS: Lateral complex: Thick anterior talofibular ligament series 7 image 15,with minimal amount of naomie-ligament edema represents subacute to oldligament injury. Syndesmosis: No tear. Deltoid: The deep deltoid ligament, posterior tibiofibular ligament series8 image 4 is globular with loss of normal striations. Finding representsligament sprain of indeterminate age. No interruption seen. The superficialdeltoid ligaments are not interrupted. Spring: No interruption Joints and cartilage: Tibiotalar joint-trace effusion. No full-thickness cartilage defect or osteochondral injury. Subtalar joint-normal. Chopart joint-normal. Sinus tarsi: The normal fat signal is preserved. Muscle: Normal muscle bulk. Neurovascular: Normal appearance of tarsal tunnel, median and lateralplantar nerves. IMPRESSION 1. Plantar fasciitis of both central cord and lateral cord atinsertions. Findings likely contribute to pain. 2. The central cord fasciopathy is accompanied by reactive marrowsignal alteration at calcaneal tuberosity and surrounding soft tissue edema. 3. The lateral cord fasciopathy is represented by a heterogeneousfascial insertion surrounded by soft tissue and muscle edema. 4. Thick anterior talofibular ligament represents subacute or old anklesprain. Thank you for letting us participate in the care of this patient. If youare a health care provider and have any questions regarding this report,please contact the number below. For patients who have questions please contactthe health lead caregiver that requested your imaging first. Electronically signed by: Charlene Reilly MD, [facility]([phone]), at 05/15/2021 3:11 PM Leslie Ortiz APRN IMG MRI ORDERABLES documented in this encounter Visit Diagnoses Diagnosis Left foot pain Pain in limb documented in this encounter Care Teams Information Technology Associate Relationship Specialty Start Date End Date Mikala Ellsi APRN PCP - General Family Medicine 12/11/20 documented as of this encounter
--- OUTSIDE RECORDS SUMMARY | 2024-01-03 01:49 | XMS_ITS | Encounter Summary ---
[place] [address] Care Team Providers Care Watch Guard Gate Name Role Phone RhondaMikala ERLINDA Primary Care Provider [phone] Reason for Referral * Consultation (Routine) - Authorized Specialty Diagnoses / Procedures Referred By Jacob cox Referred To Contact Otolaryngology Diagnoses Sleep apnea, unspecified type Shortness of breath Benign paroxysmal vertigo, unspecified laterality Tinnitus, bilateral Eryn Ruiz APRN [address] [place] [address] [facility]ology [address] [place] [phone] Referral ID Status Reason Start Date Expiration Date Visits Requested Visits Authorized [id number] Authorized Consult, Test & Treat 12/07/2023 12/06/2024 1 1 Encounter Details Date Type Department Care Team (Late st Contact Info) Description 12/07/2023 Transcribe Orders [facility] Incoming Referrals [phone] Eryn Ruiz APRN [address] [place], [place] [id number] Tinnitus, bilateral (Primary Dx); Sleep apnea, unspecified type; Shortness of breath; Benign paroxysmal vertigo, unspecified laterality Social History Tobacco Use Types Packs/Day Years [...] Associated Diagnoses Orde r Schedule Referral to ENT Outpatient Referral Routine Sleep apnea, unspecified type Shortness of breath Benign paroxysmal vertigo, unspecified laterality Tinnitus, bilateral Ordered: 12/07/2023 documented as of this encounter Visit Diagnoses Diagnosis Tinnitus, bilateral- Primary Unspecified tinnitus Sleep apnea, unspecified type Shortness of breath Benign paroxysmal vertigo, unspecified laterality documented in this encounter Care Teams Watch Guard Gate Relationship Specialty Start Date End Date Mikala Ellis APRN PCP - General Family Medicine 12/11/20 documented as of this encounter
--- OUTSIDE RECORDS SUMMARY | 2024-01-03 01:49 | XMS_ITS | Encounter Summary ---
Author Organization [facility] Address [facility] [place] [address] Care Team Providers Care Biological Scientist Name Role Phone RhondaMikala nice ERLINDA Primary Care Provider [phone] [phone] Encounter Details Date Type Department Care Team (Latest Contact Info) Description 05/13/2021 4:15 PM EST - 05/13/2021 11:59 PM EST Hospital Encounter XRay at [address] [place] [address] Leslie Ortiz APRN [facility] [place] [address] Left foot pain Discharge Disposition: Home Social [...] Procedure Name Priority Date/Time Associated Diagnosis Comments XR FOOT/ANKLE 5 VIEWS LEFT Routine 05/13/2021 4:42 PM EST Left foot pain documented in this encounter Results * XR Foot/Ankle 5 Views Left (05/13/2021 4:42 PM EST) Anatomical Region Laterality Modality Foot, Ankle Left Digital Radiogra phy Impressions 05/13/2021 4:48 PM EST 1. ??Intraocular body versus sequela of old trauma along the lateral gutter of the mortise joint space. 2. ??First metatarsophalangeal joint osteoarthropathy. Thank you for letting us participate in the care of this patient. ??If you are a health care provider and have any questions regarding this report, please contact the number below. ??For patients who have questions please contact the health career professional that requested your imaging first. ? Narrative 05/13/2021 4:48 PM EST EXAMINATION: XR FOOT/ANKLE 5 VIEWS LEFT CLINICAL HISTORY: left foot numbness (as entered by ordering provider in the order requisition) TECHNIQUE: Weightbearing AP, oblique, lateral views of the left foot. Weightbearing AP and mortise views of the left ankle. COMPARISON: None FINDINGS: Fracture or malalignment. Subchondral sclerosis and marginal osteophytes of the first metatarsophalangeal joint. No tibiotalar joint effusion. Small plantar calcaneal enthesophyte. Talar dome is intact. The mortise joint space is symmetric and preserved. Small corticated ossicle along the margin of the lateral gutter of the mortise joint space could represent an intra-articular body versus sequela of old trauma. Procedure Note Mikala Landa MD - 05/13/2021 EXAMINATION: XR FOOT/ANKLE 5 VIEWS LEFT CLINICAL HISTORY: left foot numbness (as entered by ordering provider inthe order requisition) TECHNIQUE: Weightbearing AP, oblique, lateral views of the left foot. WeightbearingAP and mortise views of the left ankle. COMPARISON: None FINDINGS: Fracture or malalignment. Subchondral sclerosis and marginal osteophytesof the first metatarsophalangeal joint. No tibiotalar joint effusion. Smallplantar calcaneal enthesophyte. Talar dome is intact. The mortise joint space is symmetric and preserved. Small corticated ossicle along the margin ofthe lateral gutter of the mortise joint space could represent anintra-articular body versus sequela of old trauma. IMPRESSION 1. Intraocular body versus sequela of old trauma along the lateral gutterof the mortise joint space. 2. First metatarsophalangeal joint osteoarthropathy. Thank you for letting us participate in the care of this patient. If youare a health care provider and have any questions regarding this report,please contact the number below. For patients who have questions please contactthe health career professional that requested your imaging first. Leslie Ortiz APRN IMG DX ORDERABLES documented in this encounter Visit Diagnoses Diagnosis Left foot pain Pain in limb documented in this encounter Care Teams Biological Scientist Relationship Specialty Start Date End Date Mikala Ellis APRN PCP - General Family Medicine 12/11/20 documented as of this encounter
--- OUTSIDE RECORDS SUMMARY | 2024-01-03 01:50 | XMS_ITS | Encounter Summary ---
Author Organization [facility] [place] [address] Care Team Providers Care Coat Examiner Name Role Phone Mikala Ellis APRN Primary Care Provider [phone] Reason for Referral * Diagnostic Test (Routine) - Closed Specialty Diagnoses / Procedures Referred By Jacob cox Referred To Contact Radiology Diagnoses Left foot pain Procedures MRI Ankle wo Contrast Left MRI Foot wwo Contrast Left Leslie Ortiz APRN [facility] [place] [address] [place] [address] Referral ID Status Reason Start Date Expiration Date V isits Requested Visits Authorized [id number] Closed Specialty Service Requested 05/13/2021 11/11/2022 1 1 Reason for Visit * Reason Comments Establish Care Paresthesia of left foot * Consultation (Routine) - Closed Specialty Diagnoses / Procedures Referred By Contindra t Referred To Contact Orthopaedics Diagnoses Left foot pain Paresthesia of left foot Bakari Poole MD [facility] [place] [address] Ezekiel Durham MD [facility] [place] [address] Referral ID Status Reason Start Date Expiration Date V isits Requested Visits Authorized [id number] Closed Consult, Test & Treat 04/02/2021 04/02/2022 1 1 Encounter Details Date Type Department Care Team (Late st Contact Info) Description 05/13/2021 3:30 PM EST Office [place] [address] Ezekiel Durham MD [facility] [place] [address] Left foot pain Social History Tobacco Use Types Packs/Day Years [...] Sign Reading Time Taken Comments Blood Pressure 133/77 05/13/2021 3:45 PM EST Pulse 67 05/13/2021 3:45 PM EST Temperature - - Respiratory Rate - - Oxygen Saturation - - Inhaled Oxygen Concentration - - Weight 94.3 kg (208 lb) 05/13/2021 3:45 PM EST Height 165.1 cm (5' 5) 05/13/2021 3:45 PM EST Body Mass Index 34.61 05/13/2021 3:45 PM EST documented in this encounter Progress Notes * Leslie Ortiz APRN - 05/13/2021 3:30 PM EST PATIENT NAME: Delmy Hannon AGE: 55 y.o. MR#: [id number] DATE OF VISIT: 05/13/2021 CHIEF COMPLAINT: LEFT foot pain HISTORY OF PRESENT ILLNESS: Ms. Hannon is a 55 y.o. female who comes into clinic today for evaluation of the LEFT foot pain. She states that her pain is worse in the mornings when she first gets up and after she has been sitting for awhile. She describes the pain as shooting through the plantar surface of the heel and along the lateral side of the foot rounding the lateral malleolus. She then repo rts pain at the base of the 5th metatarsal and through the distal tuft of the 5th metatarsal. Past medical history: Patient Active Problem List Diagnosis Date Noted ??? HEATHER (obstructive sleep apnea) 10/02/2019 Medications: [...] for the past 24 hrs: Pulse BP 05/13/21 1545 67 133/77 Physical exam: Ms. Hannon is a 55 [...] show no dislocation or evidence of fracture. Small osteophyte along the edge of the calcaneus. Assessment and plan:: 55 y.o. year-old female who has different areas of pain. It is unclear what the etiology of each atthis time. She has a history of severe ankle sprain on this side,there does not appear to be a laxity of the joint. There maybe some component of plantar fascitis but there does not appear to be a a large amount of pain along the plantar fascia. With her lateral numbness tingling and normal EMG would plan for MRI of foot. This plan was discussed with the patient and they are in agreement. All of the patient's questions were answered. The patient understand to contact us if they have any other questions or concerns. FU: after MRI foot completed. The above dictation was made with voice recogonition software * Ezekiel Durham MD - 05/13/2021 3:30 PM EST I saw the patient in conjunction with Yany Ortiz and agree with her assessment and plan. 55-year-old female with multifocal pain in her left foot. She has had an EMG at this point which is normal. She has what she pain in the distribution of her sural nerve. She has pain in and around the area ofher sinus tarsi, but she does not have significant pes planus. She has pain both with palpation of t he insertion of her plantar fascia, but also with heel squeeze which is unusual. She denies any increase in activity or injury. When she walks she has a shortened stance phase, decreasing the amount of time she loads her calcaneus. I am uncertain as to her exact diagnosis at this point. I suggestedan MRI of her foot to look for changes in and around the calcaneus, which is her current primary source of pain. She may have a sub-EMG detectable injury to her sural nerve from her previous sprain causing lateral pain. She may have lateral impingement and/or sinus tarsi syndrome from mild pes planus, but again this appears relatively subtle today. Hopefully the MRI will shed further light on anyunderlying mechanical or structural pathology. documented in this encounter Plan of Treatment Not on file documented as of this encounter Results * MRI Ankle wo [...] who have questions please contact the health care analyst that requested your imaging first. ? Electronically signed by: Charlene Reilly MD, [facility] ([phone]), at 05/15/2021 3:11 PM Narrative 05/15/2021 3:11 [...] patients who have questions please contactthe health care analyst that requested your imaging first. Electronically signed by: Charlene Reilly MD, [facility]([phone]), at 05/15/2021 3:11 PM Mariamcornelia Jed Ortiz APRN IMG MRI ORDERABLES * XR Foot/Ankle 5 Views Left (05/13/2021 [...] who have questions please contact the health care analyst that requested your imaging first. ? Narrative [...] patients who have questions please contactthe health care analyst that requested your imaging first. Leslie Ortiz APRN IMG DX ORDERABLES documented in this encounter Visit Diagnoses Diagnosis Left foot pain Pain in limb Left foot pain Pain in limb Left foot pain Pain in limb documented in this encounter Care Teams Coat Examiner Relationship Specialty Start Date End Date Mikala Ellis APRN PCP - General Family Medicine 12/11/20 documented as of this encounter
--- OUTSIDE RECORDS SUMMARY | 2024-01-03 01:50 | XMS_ITS | Encounter Summary ---
Author Organization [facility] [place] [address] Care Team Providers Care Spinning Bath Person Name Role Phone RhondaMikala nice ERLINDA Primary Care Provider [phone] Encounter Details Date Type Department Care Team (Late st Contact Info) Description 03/27/2021 2:30 PM EDT TH Visit (TeleHealth) Sleep Center at [facility] [address] [place] [address] Nancy Bernard APRN [facility] [place] [address] HEATHER on CPAP Social History Tobacco Use Types Packs/Day Years [...] Sign Reading Time Taken Comments Blood Pressure - - Pulse - - Temperature - - Respiratory Rate - - Oxygen Saturation - - Inhaled Oxygen Concentration - - Weight 90.7 kg (200 lb) 03/27/2021 2:37 PM EDT Height 165.1 cm (5' 5) 03/27/2021 2:37 PM EDT Body Mass Index 33.28 03/27/2021 2:37 PM EDT documented in this encounter Progress Notes * Nancy Bernard APRN - 03/27/2021 2:30 PM EDT Sleep Medicine Telemedicine Follow-Up Note Patient is currently located at their [place] in [place] Patient provided verbal consent prior to initiation of this encounter and expressed understanding that the telemedicine visit may be billed similar to a clinic visit CC: Ms. Delmy Hannon is a 55 y.o. female seen for telemedicine follow-up of obstructive sleep apnea. HPI: Sleep Study August 2019: DIANNE 4% of 7.7 was noted with a minimum saturation of 86%. Mean saturation of 96%. 0.2 minutes spentwith a saturation less than or equal to 88%. Weight: 190 lbs Treatment: AutoCPAP-hasn't been using CPAP due to recall Device: DS Pressure: 5-15 cm Pressure Intolerance: not sure, maybe Supplemental oxygen:no Interface/Mask: nasal pillow mask, didn't like FFM Difficulty tolerating mask interface: it's OK Chin Strap: no [facility]: [facility] Update: This is her first f/u since receiving CPAP in mid 2019. She was a no show for visits in November and Apr 2020. She is upset that she had to have this visit in order to get supplies from the [facility]. She did sleep better on CPAP but is currently holding CPAP due to recall. She has registered her unit for the [employer] recall and does not use an ozone dumper mold cleaner. Humidity: yes Dry Mouth/Throat: no Symptoms: Patient-reported last 4 scores: [facility] 09/14/2019 03/27/2021 [facility] 6 (Low Risk) 3 (Low Risk) Snoring: Not on CPAP Nocturnal sleep quality improved: yes Daytime symptoms improved (Daytime sleepiness/fatigue): yes Naps: no Involuntary Dozing: no Sleepiness or Drowsiness when driving: no Sleep Pattern: Bedtime: 8p-2a, varies based on fatigue levels Position: prone Rise time: 7:3-8a Awakenings: Card Data Download: not available today No current outpatient medications on file. Active Ambulatory Problems Diagnosis Date Noted ??? HEATHER (obstructive sleep apnea) 10/02/2019 Resolved Ambulatory Problems Diagnosis Date Noted ??? No Resolved Ambulatory Problems Past Medical History: Diagnosis Date ??? Arthralgia HEATHER ROS: Constitutional: Weight change: patient not weighed today, based on most recent weight in [facility] weight has been- Wt Readings from Last 3 Encounters: 03/27/21 90.7 kg (200 lb) 09/13/19 86.2 kg (190 lb) ENT: Nasal Obstruction: no : Nocturia: no Time spent: total time of visit was 20 minutes, including face to face counseling, chart review anddocumentation Assessment: Ms. Delmy Hannon is a 55 y.o. female seen for obstructive sleep apnea. The data download is not available today. States she has not used due to the recall. Seems she was getting benefit from the CPAP but this not entirely clear. Recommendations: Keep autoCPAP 5-15 cm Order for PAP supplies to [facility] Discussed that the Roberto PAP machine was recently recalled due to risk of potential breakdown of the soundproofing foam in the machine. We reviewed the potential risks that have been associated with this, including inhalation of foam particles and possible off-gassing of toxic fumes. They confirmthat they are not using unapproved cleaning methods (such as ozone generating real estate operations manager). Discussed that at this time, we believe that the benefit of CPAP likely outweighs the risk and that the special forces senior sergeant will replace or repair the machine. They indicate understanding of the situation. Has registered her machine on special forces senior sergeant website for repair or replacement. Call DME company for questions on machine, supply replacements, billing, and for confirming compliance met Continue to get PAP supplies at the recommended replacement intervals Driving safety discussed, recommend patient not drive if drowsy, if drowsy while driving, pull overand nap. Follow-up: 3 months after she resumes CPAP The patient indicates understanding of these issues and agrees with the plan. NANCY BERNARD APRN documented in this encounter Plan of Treatment Not on file documented as of this encounter Visit Diagnoses Diagnosis HEATHER on CPAP Obstructive sleep apnea (adult) (pediatric) documented in this encounter Care Teams Spinning Bath Person Relationship Specialty Start Date End Date Mikala Ellis APRN PCP - General Family Medicine 12/11/20 documented as of this encounter
--- OUTSIDE RECORDS SUMMARY | 2024-01-03 01:50 | XMS_ITS | Encounter Summary ---
Author Organization [facility] [place] [address] Care Team Providers Care Tents Assembler Name Role Phone Jennifer Foster MD Primary Care Provider [phone] Encounter Details Date Type Department Care Team (Late st Contact Info) Description 11/28/2019 Telephone [facility] at [address] [place] [address] Lucretia Valladares Social History Tobacco Use Types Packs/Day Years [...] on filedocumented in this encounter Care Teams Tents Assembler Relationship Specialty Start Date End Date Jennifer Foster MD [address] [place], [place] [address] PCP - General 04/22/10 12/10/20 documented as of this encounter
--- OUTSIDE RECORDS SUMMARY | 2024-01-03 01:50 | XMS_ITS | Encounter Summary ---
Author Organization [facility] Address One [facility] [place] [address] Care Team Providers Care Leather Stretcher Name Role Phone Jennifer Foster MD Primary Care Provider [phone] Encounter Details Date Type Department Care Team (Late st Contact Info) Description 05/03/2020 Notes Only Sleep Center at [address] [place] [address] Berta Waller, RN Social History Tobacco Use Types Packs/Day Years Used Date Smoking Tobacco: Never Smokeless Tobacco: Never Alcohol Use Standard Drinks/Week Comments Not Currently 0 (1 standard drink = 0.6 oz pur e alcohol) Sex and Gender Information Value Date Recorded Sex Assigned at Not on file Gender Identity Not on file Sexual Orientation Not on file documented as of this encounter Progress Notes * Berta Waller - 05/03/2020 11:57 AM EST Attempted to call patient to schedule compliance as she is having trouble receiving supplies from [facility]. Phone has calling restrictions, unable to connect. documented in this encounter Plan of Treatment Not on file documented as of this encounter Visit Diagnoses Not on filedocumented in this encounter Care Teams Leather Stretcher Relationship Specialty Start Date End Date Jennifer Foster MD [address] [place] [address] PCP - General 04/22/10 12/10/20 documented as of this encounter
--- OUTSIDE RECORDS SUMMARY | 2024-01-03 01:50 | XMS_ITS | Encounter Summary ---
Author Organization [facility] Address [facility] [place] [address] Care Team Providers Care Product Tester Fiberglass Name Role Phone Jennifer Foster MD Primary Care Provider [phone] Encounter Details Date Type Department Care Team (Late st Contact Info) Description 05/15/2020 Notes Only Sleep Center at [facility] [address] [place] [address] Berta Waller, RN Social History Tobacco Use [...] encounter Progress Notes * Berta Waller - 05/15/2020 9:07 AM EST Patient cancelled today's appointment as she had forgot about it. States there is a bad smell in her machine and she is using it on and off. Patient hesitant to reschedule appointment as she is terminating insurance at the end of the month since she does not feel it covers anything. Suggested that she call [facility] 1) about the smell and 2) to see what out of pocket costs will be and if she will continue to use CPAP. Provided contact information for our office to let us know how she would like to proceed. documented in this encounter Plan of Treatment Not on file documented as of this encounter Visit Diagnoses Not on filedocumented in this encounter Care Teams Product Tester Fiberglass Relationship Specialty Start Date End Date Jennifer Foster MD [address] [place] [address] PCP - General 04/22/10 12/10/20 documented as of this encounter
--- OUTSIDE RECORDS SUMMARY | 2024-01-03 01:50 | XMS_ITS | Encounter Summary ---
[place] [address] Care Team Providers Care Hr Intern Name Role Phone Jennifer Foster MD Primary Care Provider [phone] Reason for Visit * Reason Comments Syncope and Collapse Encounter Details Date Type Department Care Team (Late st Contact Info) Description 01/31/2014 2:00 PM EDT Office Visit [facility] [address] [place] [phone] Scooby Grier Jr., MD [address] [place] [address] Syncope (Primary Dx) Social History Tobacco Use Types Packs/Day Years Used Date Smoking Tobacco: Never Assessed Sex and Gender Information Value Date Recorded Sex Assigned at Not on file Gender Identity Not on file Sexual Orientation Not on file documented as of this encounter Progress Notes * Scooby Grier Jr., MD - 02/09/2014 8:35 AM EDT KARLIE negative- scanned documented in this encounter Plan of Treatment Not on file documented as of this encounter Visit Diagnoses Diagnosis Syncope- Primary Syncope and collapse documented in this encounter Care Teams Hr Intern Relationship Specialty Start Date End Date Jennifer Foster MD [address] [place] [address] PCP - General 04/22/10 12/10/20 documented as of this encounter
--- OUTSIDE RECORDS SUMMARY | 2024-01-03 01:50 | XMS_ITS | Encounter Summary ---
Author Organization [facility] [place] [address] Care Team Providers Care Folder Hand Name Role Phone Mikala Ellis APRN Primary Care Provider [phone] Reason for Visit * Consultation (Routine) - Closed Specialty Diagnoses / Procedures Referred By Jacob cox Referred To Contact Neurology Diagnoses Hereditary and idiopathic neuropathy, unspecified Mikala Ellis APRN [address] [place] [address] [facility] Neurology [address] [place] [phone] Referral ID Status Reason Start Date Expiration Date V isits Requested Visits Authorized [id number] Closed Consult, Test & Treat Connection Center PCP Updated and/or Approved 08/27/2020 08/27/2021 6 6 Encounter Details Date Type Department Care Team (Latest Contact Info) Description 03/18/2021 2:00 PM EDT TH Visit (TeleHealth) [place] [phone] Bakari Poole MD [facility] [place] [address] Numbness of left foot; Left foot pain Social History Tobacco Use [...] as of this encounter Progress Notes * Bakari Poole MD - 03/18/2021 2:00 PM EDT Delmy Hannon verbally consents to this telephone visit and understands that this visit may be billed, similar to a clinic office visit. Delmy was unable to connect via telehealth so we converted to a telephone visit. I did review a previous note from her PCP and podiatry. Delmy is a 45-year-old female who mentions for about 5 years she has had pain involving the left foot. She has noted someburning on the bottom of her foot. She feels like activity has exacerbated it. Rest can help. She says it slowly become more of an issue over the last few years. Sometimes she will note a little burning at night but it does not affect her sleep. She ended up seeing a cardiovascular specialist and having an x-ray which she said was unremarkable a few years ago. She has not seen an orthopedist. On further questioning she does also note some numbness involving the lateral border of the left foot to the fifth digit. She denies any numbness or tingling involving the bottom of the foot. She mentions a left ankle injury many years ago which she fully recovered. With her current foot pain she does note some ankle pain with it. She denies any balance complaints and denies any problems with herright foot until recently where she finds since she is favoring it more she will have a little discomfort on the bottom of that foot 2. She denies any numbness of the right foot. She mentions some intermittent low back pain over the years but denies radicular type pain. She does not want to take extra medications and does not recall trying gabapentin. Amitriptyline was on her list in the past although she does not recall why she took it but she does not take it anymore. She also has more recently tried acupuncture although she is not sure if it is not any benefit as of yet. She did have some lab work through her PCP earlier this year which included unremarkable B12, CRP, complete metabolic panel, ESR. Vitamin D was low at 23.7. She has taken vitamin D replacement in thepast. Also per the notes she did have diabetes screening and TSH at one point as well which were unremarkable. I do not have those lab values. Past medical history is notable only for mild obstructive sleep apnea. Medications 03/18/21 6658 Medication Sig Taking? meloxicam (MOBIC) 15 mg Tablet MELOXICAM 15 MG TABS ergocalciferol (vitamin D) 50,000 unit Capsule Take 1 capsule by mouth once a week. multivit-mins no.63/iron/folic (M-VIT ORAL) Take by mouth. ibuprofen (ADVIL;MOTRIN) 600 mg tablet 600mg, PO, Four times daily She mentions she is not taking Mobic, vitamin D or multivitamin at this time but does take occasional ibuprofen. No Known Allergies Family history of note she is adopted so she does not know if there is a family history of neuropathy. Social history: She does not work currently. She lives with her and 3 of her children. Her children are adults. She does not smoke. She does not drink alcohol. She does mention some intermittent leg swelling bilaterally. She also mentions some aching of her legs at times at night. As this was a telephone visit exam was not done although she was alert and attentive. Speech fluentand goal-directed without dysarthria. Assessment: We discussed that her clinical picture is not clear with respect to her chronic left foot pain. She does endorse some burning pain at the bottom of her foot which is exacerbated with activity. This could possibly be related to tarsal tunnel syndrome although it is unclear. She could also have musculoskeletal type pain. She does however also note some numbness along the lateral border of the left foot which may suggest the sural distribution. She does not have any numbness of the right foot to suggest an underlying generalized neuropathy and she denies radicular type pain to suggest an S1 radiculopathy. We also discussed the limitations of a telephone visit for further evaluation. Recommendations: We did discuss further evaluation with EMG nerve conduction studies and I will see her back for that including neuromuscular exam. We also discussed she can touch base with her PCP regarding possibility of a referral to orthopedics at [facility] for further evaluation of her left foot pain. She did have an x-ray of her foot a few years ago that was unremarkable. We did discuss also the possibility of a gabapentin trial although she prefer to avoid extra medications. We discussed the medication may lead to fatigue or leg swelling. She could possibly try low-dose starting in 100 mg in the future at night through her PCP with a slow titration initially to 100mg twice daily after a week and then 100 mg three times daily and see if it leads to any improvement with further titration from there but again at this point we will hold off on that and will see her back for nerve conduction studies. I provided care to the patient today via telephone call. The total time associated with this visit was 45 minutes including telephone discussion, chart review, and documentation This note was created with voice recognition software. documented in this encounter Plan of Treatment Not on file documented as of this encounter Visit Diagnoses Diagnosis Numbness of left foot Left foot pain Pain in limb documented in this encounter Care Teams Folder Hand Relationship Specialty Start Date End Date Mikala Ellis APRN PCP - General Family Medicine 12/11/20 documented as of this encounter
--- OUTSIDE RECORDS SUMMARY | 2024-01-03 01:50 | XMS_ITS | Encounter Summary ---
Author Organization [facility] Address [facility] [place] [address] Care Team Providers Care Grades 9 Through 12 Teacher Name Role Phone Jennifer Foster MD Primary Care Provider [phone] Reason for Referral * Consultation (Routine) - Closed Specialty Diagnoses / Procedures Referred By Jacob cox Referred To Contact Sleep Center Diagnoses Snoring Witnessed episode of apnea Gasping for breath Daytime sleepiness Frequent nocturnal awakening Obesity, unspecified classification, unspecified obesity type, unspecified whether serious comorbidity present Procedures PRG HOME SLEEP TEST TYPE 3 PORTABLE Nancy Bernard APRN [facility] [place] [address] [facility] Sleep Medicine [address] [place] [address] Referral ID Status Reason Start Date Expiration Date V isits Requested Visits Authorized [id number] Closed Test Only 09/14/2019 09/13/2020 1 1 Reason for Visit * Consultation (Routine) - Specialty Diagnoses / Procedures Referred By Contindra cox Referred To Contact Sleep Center Diagnoses Obesity, unspecified Other fatigue Snoring SYMPTOMS SUGGESTIVE OF HEATHER Mikala Ellis APRN [address] [place] [address] [facility] Sleep Medicine [address] [place] [address] Referral ID Status Reason Start Date Expiration Date V isits Requested Visits Authorized [id number] Consult, Test & Treat Connection Center PCP Updated and/or Approved 05/29/2019 05/29/2020 6 6 Encounter Details Date Type Department Care Team (Late st Contact Info) Description 09/14/2019 3:30 PM EDT TH Visit (TeleHealth) Sleep Center at [facility] [address] [place] [address] Nancy Bernard APRN [facility] [place] [address] Snoring; Witnessed episode of apnea; Gasping for breath; Daytime sleepiness; Frequent nocturnal awakening; Obesity, unspecified classification, unspecified obesity type, unspecified whether serious comorbidity present Social History Tobacco Use Types Packs/Day Years [...] - Inhaled Oxygen Concentration - - Weight 86.2 kg (190 lb) 09/13/2019 1:00 PM EDT verbally reported Height 165.1 cm (5' 5) 09/13/2019 1:00 PM EDT Body Mass Index 31.62 09/13/2019 1:00 PM EDT documented in this encounter Progress Notes * Nancy Bernard APRN - 09/14/2019 3:30 PM EDT Sleep Medicine Telemedicine Consultation Note The patient is currently at her home in [place]. Patient provided verbal consent prior to initiation of this telemedicine encounter. CC:Delmy Hannon is a 53 y.o. female seen at the request of Mikala Ellis APRN for advice regarding possible HEATHER. HPI: She has been snoring loudly for years and it's worse when she is overly tired. Her also notes periods of apnea and nocturnal gasping. She wakes frequently during the night, mostly due to noises or her wakes her, she sometimes can have trouble falling back to sleep. She believes intrusive thoughts keep her up. She wakes feeling refreshed if she got enough sleep, she thinks 8 hours is good. She can be sleepy during the day. She does not nap but will doze if sitting quietly at home. She admits to rarely feeling sleepy while driving with no close calls or accidents. She wears a partial guard immigration some nights, she might grind teeth or clench her jaw but isn't really sure. HX: Arthralgia, obesity Sleep Pattern: Bed/Recliner/Wedge: flat bed with one pillow, prefers to sleep prone Bedtime: 1a, wants it to be 10-11p but if mind is racing it takes longer so she plans for 1a. She just started working second shift. Lights out: same as bedtime Latency: within a few minutes Awakenings: 3-4 times Reason: noises, , her thoughts/anxiety Duration: quickly back to sleep but other times can be up for a while-pattern times years. Did not take elavil as prescribed earlier this year but tried a natural sleep aid, Phenitropic, instead. It helps but she feels too groggy in the am. Nyquil really helps her sleep well but again has a hangover effect. Wake time: 6:3-8a Rise time: same as wake time Respiratory: Snoring: yes, loudly times years, especially when tired Observed Apneas: yes Nocturnal Gasping: yes Nasal Obstruction: no Mouth Breathing: no Dry Mouth: no Daytime Symptoms: [facility]: Patient-reported last 4 scores: [facility] 09/14/2019 [facility] 6 Upon Awakening: feels refreshed when she gets 8 hours of sleep otherwise not Naps: no Involuntary Dozing: yes, sitting quietly at home Driving: a bit Close calls related to sleepiness no Accidents related to sleepiness no Other Associates Sleep Symptoms: Parasomnias: Sleep Walking: no Dream Enactment: no ? bruxism Motor: RLS: no PLMS: no Narcolepsy: Hallucinations: no Paralysis: no Cataplexy: not asked Medications: Current Outpatient Medications: ??? ergocalciferol (vitamin D) 50,000 unit Capsule, Take 1 capsule by mouth once a week., Disp: , Rfl: ??? multivit-mins no.63/iron/folic (M-VIT ORAL), Take by mouth., Disp: , Rfl: ??? ibuprofen (ADVIL;MOTRIN) 600 mg tablet, 600mg, PO, Four times daily, Disp: , Rfl: Past Medical History: Active Ambulatory Problems Diagnosis Date Noted ??? No Active Ambulatory Problems Resolved Ambulatory Problems Diagnosis Date Noted ??? No Resolved Ambulatory Problems Past Medical History: Diagnosis Date ??? Arthralgia Social History: Living situation: lives with and 3 adult children Employment: works in a factory-works second shift Alcohol: no Smoking: no Caffeine: Other drugs: no Family History: Family history of sleep disorders: She is adopted ROS: CON: weight change: gained 70 lbs in the last 6 years ENT: nasal obstruction: no PUL: [place]: mild CV: chest pain: no Palpitations: sometimes LE edema: yes, has varicose veins GI: GERD: no : Nocturia: no MSK: Pain: back pain sometimes interferes with sleep NEURO: sleep related headaches: no ALL: no ENDO: no DM or thyroid PSY: Depression: might be Anxiety: yes PE: Wt Readings from Last 3 Encounters: 09/13/19 83.9 kg (185 lb) BMI in Apr 2019 33.42 kg/m2 General: NAD Eyes: conjunctiva clear ENT: Crowded teeth: no Mandibular structure and position: normal NECK: Submental fat present: yes LUNGS: respirations even and unlabored SKIN: no visible rashes NEURO: A&O times 3 PSYCH: Alert and appropriate: yes Affect: full range Mood: good Judgement and insight: intact Assessment: Delmy Hannon is a 53 y.o. female with a history of snoring, periods of apnea, nocturnal gasping,frequent nocturnal awakenings and daytime sleepiness. Has the following physical features associated with HEATHER; obesity. She reports possible bruxism. The history and symptoms are suspicious for obstructive sleep apnea. The diagnosis of obstructive sleep apnea was reviewed in detail with the patient at this time. Potential consequences of untreated obstructive sleep apnea reviewed, including increased cardiovascular risk. Treatment options reviewed in detail including PAP therapy and oral appliances. Patient confirms that study results can be released to their my account or will be communicated by mailed letter. Questions regarding diagnosis and management answered at this time. Recommendations: 1. HST, she is aware she may need to return for an in lab PSG. Handout mailed to home. 2. Role of weight loss reviewed 3. Safe driving precautions extensively reviewed with the patient 4. Sleep apnea facts and figures and oral appliance handouts sent via US mail. 5. F/U 6 weeks after starting PAP therapy if found to have HEATHER. Plan discussed with the patient and they are in agreement. NANCY BERNARD APRN documented in this encounter Plan of Treatment Scheduled Referrals Name Type Priority Associated Diagnoses Orde r Schedule Referral to Sleep Disorders Center Outpatient Referral Routine Snoring Witnessed Episode Of Apnea Gasping For Breath Daytime Sleepiness Frequent Nocturnal Awakening Obesity, Unspecified Classification, Unspecified Obesity Type, Unspecified Whether Serious Comorbidity Present Ordered: 09/14/2019 documented as of this encounter Visit Diagnoses Diagnosis Snoring Other dyspnea and respiratory abnormality Witnessed episode of apnea Gasping for breath Daytime sleepiness Frequent nocturnal awakening Other sleep disturbances Obesity, unspecified classification, unspecified obesity type, unspecified whether serious comorbidity present documented in this encounter Care Teams Grades 9 Through 12 Teacher Relationship Specialty Start Date End Date Jennifer Foster MD [address] [place] [address] PCP - General 04/22/10 12/10/20 documented as of this encounter
--- OUTSIDE RECORDS SUMMARY | 2024-01-03 01:50 | XMS_ITS | Encounter Summary ---
Author [facility] [place] [address] Care Team Providers Care Salesperson Driver Name Role Phone Mikala Ellis APRN Primary Care Provider [phone] Reason for Visit * Reason Onset Date Comments Appointment 03/25/2021 emg Encounter Details Date Type Department Care Team (Late st Contact Info) Description 03/25/2021 [place] [id number] Bakari Poole MD [facility] [place] [address] Appointment (emg) Social History Tobacco Use Types Packs/Day Years [...] encounter Miscellaneous Notes * Telephone Encounter - Yany Perez - 03/26/2021 3:42 PM EDT Patient took first available appt for 06/05/21 for EMG with Zulema. Patient states she needs EMG done in either Nov or by mid Apr. Patient states that she will not have insurance by the first of next year and wants testing done before that deadline. * Telephone Encounter - Javon Ellis - 03/25/2021 11:05 AM EDT Call Center / [place] Message - General Issue Call Provider patient sees in Clinic: Bakari Poole Caller and relationship (if other than patient-full name): [employer] and position if other than patient or family: n/a Call back number: [phone] Ok to leave a message: yes Reason for call: Pt stated she needs to schedule an EMG with Dr Poole, this agent was not able topull up a schedule. Please call to assist in scheduling. Disposition of Call (choose one and remove others): ??? Routine message sent to Package Winder: Nurse/Package Winder contacted via: Message: y Call: n Pager: n documented in this encounter Plan of Treatment Not on file documented as of this encounter Visit Diagnoses Not on filedocumented in this encounter Care Teams Salesperson Driver Relationship Specialty Start Date End Date Mikala Ellis APRN PCP - General Family Medicine 12/11/20 documented as of this encounter
--- OUTSIDE RECORDS SUMMARY | 2024-01-03 01:50 | XMS_ITS | Encounter Summary ---
Author Organization [facility] [place] [address] Care Team Providers Care Diploma Medical Assistant Name Role Phone Mikala Ellis APRN Primary Care Provider [phone] Encounter Details Date Type Department Care Team (Late st Contact Info) Description 04/04/2021 External [place] [address] Bakari Poole MD [facility] [place] [address] Social History Tobacco Use Types Packs/Day Years [...] Procedure Name Priority Date/Time Associated Diagnosis Comments EMG SCAN Routine 04/02/2021 documented in this encounter Results * Scan Doc: EMG (04/02/2021) Bakari Poole MD MEDIA MGR SCAN EXT O RDR/RSLT documented in this encounter Visit Diagnoses Not on filedocumented in this encounter Care Teams Diploma Medical Assistant Relationship Specialty Start Date End Date Mikala Ellis APRN PCP - General Family Medicine 12/11/20 documented as of this encounter
--- OUTSIDE RECORDS SUMMARY | 2024-01-03 01:50 | XMS_ITS | Encounter Summary ---
Author Organization [facility] Address [facility] [place] [address] Care Team Providers Care Money Room Teller Name Role Phone Jennifer Foster MD Primary Care Provider [phone] Reason for Visit * Consultation (Routine) - Closed Specialty Diagnoses / Procedures Referred By Jacob t Referred To Contact Sleep Center Diagnoses Snoring Witnessed episode of apnea Gasping for breath Daytime sleepiness Frequent nocturnal awakening Obesity, unspecified classification, unspecified obesity type, unspecified whether serious comorbidity present Procedures PRG HOME SLEEP TEST TYPE 3 PORTABLE Nacny Bernard APRN [facility] [place] [address] [facility] Sleep Medicine [address] [place] [address] Referral ID Status Reason Start Date Expiration Date V isits Requested Visits Authorized [id number] Closed Test Only 09/14/2019 09/13/2020 1 1 Encounter Details Date Type Department Care Team (Late st Contact Info) Description 09/25/2019 9:00 AM EDT Procedure visit Sleep Center at [facility] [address] [place] [address] Ronel Khan MD [facility] [place] [address] HEATHER (obstructive sleep apnea) Social History Tobacco Use Types Packs/Day Years Used Date Smoking Tobacco: Never Smokeless Tobacco: Never Alcohol Use Standard Drinks/Week Comments Not Currently 0 (1 standard drink = 0.6 oz pur e alcohol) Sex and Gender Information Value Date Recorded Sex Assigned at Not on file Gender Identity Not on file Sexual Orientation Not on file documented as of this encounter Progress Notes * Ronel Khan MD - 09/25/2019 9:00 AM EDT Images from the original note were not included. REPORT OF DIAGNOSTIC HOME SLEEP TEST IDENTIFYING INFORMATION Delmy Hannon : 1965 REFERRING PHYSICIAN: Mikala Ellis APRN PRIMARY CARE PHYSICIAN: Jennifer Foster MD History Of Present Illness: Delmy Hannon is a 54 y.o. female who presents for a polysomnogram. Limited Polysomnography: The recording includes chest/abdominal respiratory effort, nasal pressure air flow, snoring and oxygen saturation (by pulse oximeter). Comment: - Respiratory: DIANNE 4% of 7.7 was noted with a minimum saturation of 86%. Mean saturation of 96%. 0.2 minutes spent with a saturation less than or equal to 88%. - Cardiac: Heart rate ranged from 45 to 68 bpm with an average heart rate of 55 bpm. - Other: Total recording time of 572.5 minutes. Assessment: Ms. Delmy Hannon is a 54 y.o. female whose home sleep test was diagnostic for at least mild degree of obstructive sleep apnea. Patient maintained adequate oxygenation. Heart rate was within normal limits. Home sleep testing may underestimate sleep apnea severity. Based on patient sleep study, treatment is recommended. CPAP therapy is primary modality of treatment. Surgical options and oral appliance are less favored. Patient may take conservative measure suchas sleeping in lateral position, weight management, and treatment for nasal congestion if present. At this time will recommend to proceed with AutoPAP given patient has no overt contraindication. Recommendations: 1. Auto CPAP 5-15cm 2. Follow up with Nancy Bernard APRN in 6 weeks after initiating PAP therapy Communication: I have mailed a letter with the results and recommendation Ronel Khan MD Sleep fellow Case discussed [facility] HOME SLEEP APNEA TEST REPORT Patient Name: Delmy Hannon Study Date: 09/25/2019 Age & Sex: 54 y.o. Female Height: 5'5 Date of : 1965 Weight: 190 BMI: 31.6 Referring Prov.: Scoring Tech: BILL ADAMSGT Sleep Fellow: Sleep Specialist: General Test Details Type III home sleep apnea testing was performed utilizing nasal pressure, single thoracoabdominal movement, heart rate, and oxygen saturation according to established AASM guidelines. Recording Start Time: 23:45:29 Monitoring Start Time: 23:45:28 Recording End Time: :47:29 Monitoring End Time: 09:17:59 Total Recording Time (TRT): 572.5 minutes Monitoring Time (MT): 572.5 minutes Respiratory Details Respiratory Event Total Count Index (events/hr) Obstructive apnea 56 5.9 Mixed apnea 0 0.0 Central apnea 4 0.4 Sum of all apnea types 60 6.3 Hypopneas without associated desaturation 1 0.1 Hypopneas with desaturation ?4% (CMS) 13 1.4 4% Respiratory Event Index (4%DIANNE): 7.7 *Includes the sum of all apneas and hypopneas (assoc. with desaturation of ?4%) per hour of monitoring. 4% AHI (CMS): 7.7 *Includes the sum of all apneas and hypopneas (assoc. with desaturation of ?4%) per hour of monitoring. Burt-Garcia Breathin.0% of total monitoring time Minimum SpO2: 86% Average SpO2 (during TRT): 96% SpO2 ? X%: Total Time ?90% 0.9 min ?89% 0.3 min ?88% 0.2 min SpO2 Ranges: Total Time 90%-99% 569.0 min 80%-90% 0.3 min 70%-80% 0.0 min 60%-70% 0.0 min 0%-60% 0.0 min Cardiac Details Minimum Heart Rate 45 bpm Maximum Heart Rate 68 bpm Average Heart Rate 55 bpm Graphs Time Scale Respiratory Event Graph SpO2 Trend * Shira Angulo MD - 09/25/2019 9:00 AM EDT I reviewed the polysomnography in its entirety. I have reviewed Dr. Khan's note and agree with thefindings and recommendations. SHIRA ANGULO MD documented in this encounter Plan of Treatment Scheduled Referrals Name Type Priority Associated Diagnoses Orde r Schedule Referral to Sleep Disorders Center Outpatient Referral Routine Snoring Witnessed Episode Of Apnea Gasping For Breath Daytime Sleepiness Frequent Nocturnal Awakening Obesity, Unspecified Classification, Unspecified Obesity Type, Unspecified Whether Serious Comorbidity Present Ordered: 09/14/2019 documented as of this encounter Visit Diagnoses Diagnosis HEATHER (obstructive sleep apnea) Obstructive sleep apnea (adult) (pediatric) documented in this encounter Care Teams Money Room Teller Relationship Specialty Start Date End Date Jennifer Foster MD [address] [place] [address] PCP - General 04/22/10 12/10/20 documented as of this encounter
--- OUTSIDE RECORDS SUMMARY | 2024-01-03 01:50 | XMS_ITS | Encounter Summary ---
Author Organization [facility] Address [facility] [place] [address] Care Team Providers Care Mixing Place Supervisor Name Role Phone RhondaMikala nice ERLINDA Primary Care Provider [phone] Reason for Referral * Consultation (Routine) - Closed Specialty Diagnoses / Procedures Referred By Jacob t Referred To Contact Orthopaedics Diagnoses Left foot pain Paresthesia of left foot Bakari Poole MD [facility] [place] [address] Ezekiel Durham MD [facility] [place] [address] Referral ID Status Reason Start Date Expiration Date V isits Requested Visits Authorized [id number] Closed Consult, Test & Treat 04/02/2021 04/02/2022 1 1 Encounter Details Date Type Department Care Team (Latest Contact Info) Description 04/02/2021 12:00 PM EDT Procedure [place] [address] Bakari Poole MD [facility] [place] [address] Left foot pain; Paresthesia of left foot Social History Tobacco Use Types Packs/Day Years [...] Progress Notes * Bakari Poole MD - 04/02/2021 12:00 PM EDT I am seeing Delmy Hannon in follow-up for EMG nerve conduction studies for left foot pain and paresthesias. Please see initial telephone consultation from March 18. The biggest limiting factor for her is pain at the heel. She finds walking exacerbates it. It can radiate up to the more anteriorplantar aspect of the foot. It seems to be more worse in the morning as well when she gets out of bed. On focused exam she is alert and attentive. Speech fluent and goal-directed without dysarthria. Extraocular muscles intact. Strength testing in the upper and lower extremities 5/5 throughout including 5/5 great toe dorsiflexion as well as plantar flexion. Reflexes 2+ throughout and toes downgoing to plantar stimulation. Sensory exam is intact to light touch temperature and vibration in the lower extremities bilaterally. She did mention some subjective tingling sensation with light touch over the proximal lateral foot. No tenderness to palpation at the ankle or heel. Gait antalgic. EMG nerve conduction studies today, please see scanned report for complete data.The left sural is within clear normal limits at 46.5 ??V. Normal left medial plantar study as well as superficial peroneal study. Left peroneal and left tibial motor studies are normal. The left peroneal and left tibialF waves are normal. EMG of the left lower extremity for tibialis anterior, gastroc, vastus lateralis, iliopsoas, and bicep femoris short head revealed no active denervation and normal motor unit action potentials. Assessment: EMG nerve conduction studies of the left lower extremity are normal and do not demonstrate electrodiagnostic evidence of a peripheral neuropathy. There is also no electrodiagnostic evidence of a left lumbosacral radiculopathy. We discussed that her clinical picture is not clear but her nerve conduction studies are reassuring. She does have pain on the bottom of her foot in the tibial but mainly calcaneal distribution however she has no abnormalities on her sensory exam in that region and her nerve conduction studies do not show evidence of a peripheral neuropathy including tibial neuropathy. She also does endorse some tingling type in the left lateral foot region however her sural study is unremarkable. She also doesnot have a clinical picture of a lumbosacral radiculopathy. We discussed the possibility of an orthopedic etiology including possibility of plantar fasciitis contributing although again it is unclearto me. Recommendations: We did discuss the role of orthopedic consultation and I will make referral to Dr. Durham for further evaluation. She did have x-rays per her report in the past although is unclear when that was done and we discussed that orthopedics may end up wanting repeat x-rays. We discussed that MRI is a possibility but I would defer to orthopedics regarding consideration of imaging including MRI of her foot and ankle. She also could possibly touch base with her PCP about obtaining an MRI depending on timingof the orthopedic consultation.. No further neurological follow-up is made with me at this point although I can see her in the future if needed depending on clinical course. This note was created with voice recognition software. Total time for this office visit was 20 minutes which included chart review, [id number] time, anddocumentation. Time exclusive the time for EMG nerve conduction studies. documented in this encounter Plan of Treatment Scheduled Referrals Name Type Priority Associated Diagnoses Order Schedule Referral to Orthopaedics Outpatient Referral Routine Left foot pain Paresthesia of left foot Ordered: 04/02/2021 documented as of this encounter Visit Diagnoses Diagnosis Left foot pain Pain in limb Paresthesia of left foot documented in this encounter Care Teams Mixing Place Supervisor Relationship Specialty Start Date End Date Mikala Ellis APRN PCP - General Family Medicine 12/11/20 documented as of this encounter
--- OUTSIDE RECORDS SUMMARY | 2024-01-03 01:50 | XMS_ITS | Encounter Summary ---
Author Organization [facility] [place] [address] Care Team Providers Care Groundwater Monitoring Technician Name Role Phone Jennifer Foster MD Primary Care Provider [phone] Encounter Details Date Type Department Care Team (Late st Contact Info) Description 10/02/2019 Orders Only Sleep Center at [facility] [address] [place] [address] Nancy Bernard APRN [facility] [place] [address] HEATHER (obstructive sleep apnea) Social History Tobacco [...] (pediatric) documented in this encounter Care Teams Groundwater Monitoring Technician Relationship Specialty Start Date End Date Jennifer Foster MD [address] [place] [address] PCP - General 04/22/10 12/10/20 documented as of this encounter
--- OUTSIDE RECORDS SUMMARY | 2024-01-03 01:50 | XMS_ITS | Encounter Summary ---
Author Organization [facility] Address One [facility] [place] [place] [address] Care Team Providers Care Underwriting Specialist Name Role Phone Mikala Ellis APRN Primary Care Provider [phone] Encounter Details Date Type Department Care Team (Late st Contact Info) Description 03/06/2021 Notes Only Sleep Center at [facility] [address] [place] [address] Lucretia Valladares Social History Tobacco Use Types [...] as of this encounter Progress Notes * Lucretia Valladares - 03/06/2021 3:51 PM EDT PATIENT DOES NOT WANT A FOLLOW UP SHE PAYS FOR EVERYTHING OUT OF POCKET AND DOES NOT FEEL SHE NEEDSTO BE SEEN. documented in this encounter Plan of Treatment Not on file documented as of this encounter Visit Diagnoses Not on filedocumented in this encounter Care Teams Underwriting Specialist Relationship Specialty Start Date End Date Mikala Ellis APRN PCP - General Family Medicine 12/11/20 documented as of this encounter
--- OUTSIDE RECORDS SUMMARY | 2024-01-03 01:50 | XMS_ITS | Encounter Summary ---
Author Organization [facility] Address One [facility] [address] [place] [address] Care Team Providers Care Studio Director Name Role Phone Mikala Ellis APRN Primary Care Provider [phone] Encounter Details Date Type Department Care Team (Late st Contact Info) Description 02/27/2021 Notes Only Sleep Center at [facility] [address] [place] [address] Lucretia Valladares Social History Tobacco Use Types [...] encounter Progress Notes * Lucretia Valladares - 02/27/2021 11:04 AM EDT lvm for patient to call and set up a follow up appointment with KT documented in this encounter Plan of Treatment Not on file documented as of this encounter Visit Diagnoses Not on filedocumented in this encounter Care Teams Studio Director Relationship Specialty Start Date End Date Mikala Ellis APRN PCP - General Family Medicine 12/11/20 documented as of this encounter
--- OUTSIDE RECORDS SUMMARY | 2024-01-03 01:50 | XMS_ITS | Encounter Summary ---
[facility] [place] [address] Care Team Providers Care Mortgage Manager Name Role Phone Mikala Ellis APRN Primary Care Provider [phone] Reason for Visit * Reason Onset Date Comments TeleHealth 03/13/2021 Encounter Details Date Type Department Care Team (Late st Contact Info) Description 03/13/2021 [place] [address] Bakari Poole MD [facility] [place] [address] TeleHealth Social History Tobacco Use Types Packs/Day Years [...] encounter Miscellaneous Notes * Telephone Encounter - Keyona Long RN - 03/13/2021 11:00 AM EDT Unable to reach this patient by phone to review their medications and allergies prior to their upcoming tele-appointment with the Neurology provider. ??No message left. ?? documented in this encounter Plan of Treatment Not on file documented as of this encounter Visit Diagnoses Not on filedocumented in this encounter Care Teams Mortgage Manager Relationship Specialty Start Date End Date Mikala Ellis APRN PCP - General Family Medicine 12/11/20 documented as of this encounter
== END ==
PROVIDERS: Visit Provider Nurse Practitioner Family
DX: R00.2 Palpitations (principal); R06.09 Other forms of dyspnea
CPT/HCPCS: 93017